=== PATIENT | male | born 1930 | race Caucasian/White ===

== ENCOUNTER 2018-05-01 23:06 | Inpatient (IN) | payer MEDICARE ==
[~2018-05-01] VITALS: Ht 167.6 cm; Wt 65.8 kg
--- OUTSIDE RECORDS SUMMARY | 2018-05-01 23:11 | XMS REPORT | CCD ---
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 Allergies Allergy Code Allergy Type Reaction Status IODINE 5933 Drug allergy HIVES Active Procedures Procedure Code Procedure Type Date Extracapsular cataract extraction, insertion of intraocular lens prosthesi 65244 CPT 09/02/2015 History of Immunizations Immunization Code Date pneumococcal polysaccharide PPV23 33 05/29/2011 Problems Problem Code Start Date Resolved Date Status ATRIAL FIBRILLATION WITH RVR 73719 05/28/2011 Active Results Unknown or Not Available. Active Medications Unknown or Not Available. Medications Administered During Visit Unknown or Not Available. Encounters Encounter Diagnosis Diagnosis Code Start Date Other specified cataract H268 09/02/2015 Social History Smoking Status Code Start Date End Date Never smoker [id number] Patient Decision Aids Patient Decision Aid MARISEL CATARACT DISMISSAL INSTRUCTIONS Discharge Instructions You were admitted to [facility] on 09/02/2015 with a principal diagnosis of Other specified cataract. You had the following procedures done: CATARACT SURG W/IOL 1 STAGE You were discharged from [facility] on 09/02/2015. Should you have any questions prior to discharge, please contact a member of your healthcare team. If you have left the hospital and have any questions, please contact your primary care physician. Chief Complaint and Reason For Visit Chief Complaint Date of Onset EYE CATARACT LEFT Function Status Unknown or Not Available. Plan of Care Unknown or Not Available. Referral/Transition of Care Unknown or Not Available.
--- OUTSIDE RECORDS SUMMARY | 2018-05-01 23:12 | XMS REPORT ---
Author Author AARON ROGERS 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 Medications Active Name Start Date Estimated Completion Date SIG Comments Celexa 20 mg oral tablet 03/30/2014 take 1 tablet (20 mg) by oral route once daily lisinopril 20 mg oral tablet 05/17/2015 TAKE 1 TABLET DAILY amlodipine 5 mg oral tablet 05/31/2015 TAKE 1 TABLET DAILY aspirin 81 mg oral tablet,delayed release (DR/EC) 08/05/2015 take 1 tablet (81 mg) by oral route once daily Pravachol 40 mg oral tablet 07/20/2016 TAKE 1 TABLET PO EVERY Wednesday AND WEDNESDAY FOR HYPERLIPIDEMIA Celexa 20 mg oral tablet 08/20/2016 TAKE 1 TABLET PO ONCE DAILY FOR DEPRESSION Pravachol 40 mg oral tablet 10/26/2016 TAKE 1 TABLET PO EVERY Wednesday AND WEDNESDAY FOR HYPERLIPIDEMIA fluticasone 50 mcg/actuation nasal spray,suspension 11/05/2017 inhale 1 spray (50 mcg) in each nostril by intranasal route 2 times per day Xanax 0.25 mg oral tablet 11/18/2017 Take One by Mouth Twice Daily lisinopril 20 mg oral tablet 2018 TAKE ONE (1) TABLET BY MOUTH DAILY (HOLD SBP<100) pravastatin 40 mg oral tablet 2018 TAKE 1 TABLET BY MOUTH EVERY WEDNESDAY, WEDNESDAY AND WEDNESDAY ONLY flecainide 50 mg oral tablet 2018 TAKE 1 TABLET BY MOUTH TWICE DAILY aspirin 81 mg oral tablet,chewable 2018 TAKE 1 TABLET BY MOUTH DAILY citalopram 20 mg oral tablet 2018 TAKE ONE (1) TABLET BY MOUTH DAILY amlodipine 5 mg oral tablet 2018 TAKE ONE (1) TABLET BY MOUTH DAILY ( HOLD SBP<100 PULSE<60) cephalexin 250 mg oral capsule 04/02/2018 04/12/2018 take 1 capsule (250 mg) by oral route every 6 hours for 10 days Name Start Date Expiration Date SIG Comments Tylenol 325 mg oral tablet 10/07/2012 take 1 - 2 tablets (325 - 650 mg) by oral route every 4 hours as needed for pain or fever Zithromax Z-Isac 250 mg oral tablet 04/25/2013 take 2 tablets (500 mg) by oral route once daily for 1 day then 1 tablet (250 mg) by oral route once daily for 4 days aspirin 81 mg oral tablet,chewable 11/28/2013 chew 1 tablet (81 mg) by oral route once daily clonidine HCl 0.1 mg oral tablet 11/28/2013 take 1 tablet by oral route every 6 hours as needed Colace 100 mg oral capsule 11/28/2013 take 1 capsule (100 mg) by oral route once daily tramadol 50 mg oral tablet 01/29/2014 take 1 tablet (50 mg) by oral route every 4 hours as needed citalopram 20 mg oral tablet 04/01/2015 TAKE ONE TABLET BY MOUTH ONCE DAILY Levaquin 500 mg oral tablet 10/22/2015 11/01/2015 take 1 tablet (500 mg) by oral route once daily for 10 days Zithromax Z-Isac 250 mg oral tablet 10/21/2015 10/26/2015 take 2 tablets (500 mg) by oral route once daily for 1 day then 1 tablet (250 mg) by oral route once daily for 4 days Medrol (Isac) 4 mg oral tablets,dose pack 12/09/2016 12/14/2016 take as directed for 5 days alprazolam 0.5 mg oral tablet 12/15/2016 12/10/2017 TAKE ONE-HALF TABLET BY MOUTH TWICE DAILY Discontinued Name Start Date Discontinued Date SIG Comments flecainide 100 mg oral tablet 10/14/2009 deleted Tambocor 100 mg oral tablet 11/20/2010 11/28/2013 .5BID - TAKE ONE-HALF TABLET BY MOUTH TWICE DAILY flecainide 100 mg oral tablet 03/20/2011 11/28/2013 TAKE ONE-HALF TABLET BY MOUTH TWICE DAILY lisinopril-hydrochlorothiazide 20-12.5 mg oral tablet 09/15/2011 11/28/2013 TAKE ONE TABLET BY MOUTH EVERY DAY alprazolam 0.5 mg oral tablet 02/12/2014 03/23/2014 take 0.5 unspecified by oral route 2 times a day flecainide 100 mg oral tablet 05/09/2014 08/05/2015 half tablet BID pravastatin 40 mg oral tablet 05/03/2015 12/22/2016 TAKE 1 TABLET ON MON,WED, WED citalopram 20 mg oral tablet 05/31/2015 12/22/2016 TAKE 1 TABLET DAILY ZESTRIL 20MG TABLET 08/20/2016 05/07/2017 TAKE 1 TABLET BY MOUTH ONCE DAILY FOR HTN (HOLD IF SBP <100) Norvasc 5 mg oral tablet 09/03/2016 05/07/2017 TAKE 1 TABLET BY MOUTH ONCE DAILY FOR HTN (HOLD IF SBP <100 PULSE <60) Colcrys 0.6 mg oral tablet 09/09/2016 12/22/2016 take 2 tablets (1.2 mg) by oral route initially, then take 1 tab (0.6 mg ) in 1 hr Bactrim DS 800-160 mg oral tablet 03/23/2018 04/02/2018 take 1 tablet by oral route every 12 hours for 10 days stomach discomfort Problem List Description Status Onset Arthritis unspecified Active Hyperlipidemia Active Hypertension Active Kidney Disease Active Chronic kidney disease, Stage II (mild) Active 05/30/2013 Vital Signs Date Time BP-Sys(mm[Hg] BP-Donna(mm[Hg]) HR(bpm) RR(rpm) Temp WT HT HC BMI BSA BMI Percentile O2 Sat(%) 04/01/2018 1:38:00 PM 124 mmHg 66 mmHg 78 bpm 18 rpm 98 F 150 lbs 98 % 03/28/2018 10:21:00 AM 128 mmHg 70 mmHg 78 bpm 18 rpm 98.2 F 150 lbs 66 in 24.2104 kg/m 1.78 m 98 % 03/22/2018 10:14:00 AM 138 mmHg 70 mmHg 74 bpm 18 rpm 98.1 F 152 lbs 64 in 26.09 kg/m2 1.76 m2 97 % 03/15/2018 3:23:00 PM 130 mmHg 70 mmHg 68 bpm 18 rpm 98.2 F 151 lbs 65 in 25.1275 kg/m 1.7723 m 96 % 11/04/2017 3:32:00 PM 128 mmHg 62 mmHg 74 bpm 18 rpm 98.2 F 154 lbs 96 % 10/26/2016 11:31:00 AM 120 mmHg 68 mmHg 66 bpm 16 rpm 97.6 F 145 lbs 66 in 23.4034 kg/m 1.7501 m 95 % 04/10/2016 10:43:00 AM 118 mmHg 62 mmHg 70 bpm 16 rpm 97.1 F 144 lbs 66 in 23.24 kg/m2 1.74 m2 96 % 10/21/2015 3:51:00 PM 135 mmHg 70 mmHg 85 bpm 18 rpm 99.6 F 145 lbs 66 in 23.4034 kg/m 1.7501 m 95 % 06/13/2015 11:21:00 AM 148 mmHg 70 mmHg 70 bpm 16 rpm 99.5 F 143 lbs 67 in 22.40 kg/m2 1.75 m2 98 % 12/04/2014 2:30:00 PM 140 mmHg 80 mmHg 82 bpm 20 rpm 98.2 F 141 lbs 67 in 22.0835 kg/m 1.7388 m 97 % 02/05/2014 11:18:00 AM 144 mmHg 72 mmHg 90 bpm 20 rpm 97.8 F 142 lbs 67 in 22.24 kg/m2 1.74 m2 97 % 12/04/2013 11:17:00 AM 130 mmHg 70 mmHg 80 bpm 20 rpm 96.9 F 147.375 lbs 67 in 23.082 kg/m 1.7777 m 97 % 05/29/2013 1:35:00 PM 130 mmHg 60 mmHg 84 bpm 16 rpm 97.3 F 145 lbs 67 in 22.71 kg/m2 1.76 m2 98 % 04/25/2013 10:00:00 AM 136 mmHg 72 mmHg 84 bpm 20 rpm 98 F 148 lbs 67 in 23.1798 kg/m 1.7814 m 97 % 04/18/2012 8:57:00 AM 140 mmHg 64 mmHg 60 bpm 16 rpm 138 lbs 67 in 21.61 kg/m2 1.72 m2 100 % 08/24/2011 10:09:00 AM 136 mmHg 82 mmHg 80 bpm 140 lbs 67 in 21.9269 kg/m 1.7326 m 10/20/2010 9:55:00 AM 136 mmHg 80 mmHg 102 bpm 142 lbs 100 % 12/30/2009 1:31:00 PM 136 mmHg 80 mmHg 84 bpm 139 lbs 99 % 12/24/2009 8:42:00 AM 112 mmHg 74 mmHg 137 lbs Social History Name Description Comments Tobacco Never smoker denies alcohol use History of Procedures Date Ordered Description Order Status 06/13/2015 12:00 AM REMOVE IMPACTED EAR WAX UNI Reviewed 09/24/2009 12:00 AM ROUTINE VENIPUNCTURE Reviewed 09/24/2009 12:00 AM LIPID PANEL Reviewed 09/24/2009 12:00 AM HEPATIC FUNCTION PANEL Reviewed 10/21/2015 12:00 AM Decadron, Per 1 Mg [facility]# [address]-25 Reviewed 10/21/2015 12:00 AM Rocephin 1 gram [facility]#8803-1389-33 Reviewed 12/25/2015 12:00 AM Removal impacted cerumen using irrigation/lavage, unilateral Reviewed 03/31/2016 12:00 AM DRAINAGE OF SKIN ABSCESS Reviewed 05/19/2016 12:00 AM Removal impacted cerumen using irrigation/lavage, unilateral Reviewed 11/19/2011 12:00 AM ROUTINE VENIPUNCTURE Reviewed 11/19/2011 12:00 AM COMPREHEN METABOLIC PANEL Reviewed 11/19/2011 12:00 AM LIPID PANEL Reviewed 12/18/2011 12:00 AM ROUTINE VENIPUNCTURE Reviewed 12/18/2011 12:00 AM COMPREHEN METABOLIC PANEL Reviewed 12/02/2016 12:00 AM COMPLETE CBC W/AUTO DIFF WBC Reviewed 12/02/2016 12:00 AM COMPREHEN METABOLIC PANEL Reviewed 12/02/2016 12:00 AM LIPID PANEL Reviewed 12/02/2016 12:00 AM Prostate Cancer Screening Reviewed 12/02/2016 12:00 AM ASSAY OF BLOOD/URIC ACID Reviewed 04/18/2012 12:00 AM ROUTINE VENIPUNCTURE Reviewed 04/18/2012 12:00 AM COMPREHEN METABOLIC PANEL Reviewed 04/18/2012 12:00 AM LIPID PANEL Reviewed 04/18/2012 12:00 AM COMPLETE CBC W/AUTO DIFF WBC Reviewed 04/18/2012 12:00 AM Prostate Cancer Screening Reviewed 05/07/2017 12:00 AM REMOVE IMPACTED EAR WAX UNI Reviewed 06/24/2012 12:00 AM Flu Injection 3 Years And Above [facility]# [address]-73 RHC Reviewed 09/20/2012 12:00 AM REMOVE IMPACTED EAR WAX UNI Reviewed 03/15/2018 12:00 AM COMPLETE CBC W/AUTO DIFF WBC Returned 03/15/2018 12:00 AM COMPREHEN METABOLIC PANEL Returned 03/15/2018 12:00 AM LIPID PANEL Returned 03/15/2018 12:00 AM Prostate Cancer Screening Returned 03/15/2018 12:00 AM COMPREHEN METABOLIC PANEL Returned 03/22/2018 12:00 AM COMPREHEN METABOLIC PANEL Returned 04/25/2013 12:00 AM THER/PROPH/DIAG INJ SC/IM Reviewed 04/25/2013 12:00 AM Decadron, Per 1 Mg [facility]# [address]-49 Reviewed 04/25/2013 12:00 AM Depo-Medrol, Per 80 Mg [facility]#9558-4254-92 Reviewed 12/24/2009 12:00 AM ROUTINE VENIPUNCTURE Reviewed 12/24/2009 12:00 AM COMPLETE CBC W/AUTO DIFF WBC Reviewed 12/24/2009 12:00 AM COMPREHEN METABOLIC PANEL Reviewed 12/24/2009 12:00 AM LIPID PANEL Reviewed 11/27/2013 12:00 AM COMPLETE CBC W/AUTO DIFF WBC Reviewed 11/27/2013 12:00 AM COMPREHEN METABOLIC PANEL Reviewed 11/27/2013 12:00 AM LIPID PANEL Reviewed 05/28/2014 12:00 AM COMPLETE CBC W/AUTO DIFF WBC Reviewed 05/28/2014 12:00 AM COMPREHEN METABOLIC PANEL Reviewed 12/04/2013 12:00 AM Prostate Cancer Screening Reviewed 05/28/2014 12:00 AM LIPID PANEL Reviewed 02/05/2014 12:00 AM COMPLETE CBC W/AUTO DIFF WBC Reviewed 02/05/2014 12:00 AM COMPREHEN METABOLIC PANEL Reviewed 02/05/2014 12:00 AM ROUTINE VENIPUNCTURE Reviewed 10/09/2010 12:00 AM ROUTINE VENIPUNCTURE Reviewed 10/09/2010 12:00 AM COMPREHEN METABOLIC PANEL Reviewed 10/09/2010 12:00 AM LIPID PANEL Reviewed 06/07/2014 12:00 AM COMPLETE CBC W/AUTO DIFF WBC Reviewed 06/07/2014 12:00 AM COMPREHEN METABOLIC PANEL Reviewed 06/07/2014 12:00 AM LIPID PANEL Reviewed 06/07/2014 12:00 AM ROUTINE VENIPUNCTURE Reviewed 01/19/2011 12:00 AM ROUTINE VENIPUNCTURE Reviewed 12/07/2014 12:00 AM COMPLETE CBC W/AUTO DIFF WBC Reviewed 12/07/2014 12:00 AM COMPREHEN METABOLIC PANEL Reviewed 01/19/2011 12:00 AM COMPLETE CBC W/AUTO DIFF WBC Reviewed 12/07/2014 12:00 AM LIPID PANEL Reviewed 12/07/2014 12:00 AM ROUTINE VENIPUNCTURE Reviewed 01/19/2011 12:00 AM COMPREHEN METABOLIC PANEL Reviewed 01/19/2011 12:00 AM LIPID PANEL Reviewed 01/19/2011 12:00 AM ASSAY OF PSA TOTAL Reviewed 12/25/2014 12:00 AM DRAINAGE OF SKIN ABSCESS Reviewed 02/06/2011 12:00 AM OCCULT BLD FECES 1-3 TESTS Reviewed Results Summary Date and Description Results 12/24/2009 4:30 PM TRIGLYCERIDES 116.0 mg/dLCHOLESTEROL 205.0 mg/dLHDL 51.0 mg/ dLTOT CHOL/HDL 4.0 LDL 123.0 mg/dLGLUCOSE 94.0 mg/dLSODIUM 137.0 mmol/ LPOTASSIUM 5.10 mmol/LCHLORIDE 103.0 mmol/LCO2 25.0 mmol/LBUN 34.0 mg/ dLCREATININE 1.70 mg/dLSGOT/AST 13.0 IU/LSGPT/ALT < 6 IU/LALK PHOS 89.0 IU/ LTOTAL PROTEIN 7.20 g/dLALBUMIN 4.60 g/dLTOTAL BILI 0.40 mg/dLCALCIUM 9.50 mg/ dLAGE 79 GFR NonAA 39 GFR AA 47 eGFR 39 eGFR AA* 47 WBC 7.1 RBC 3.98 HGB 13.0 g/ dLHCT 37.10 %MCV 93.0 fLMCH 32.70 pgMCHC 35.0 g/dLRDW SD 42 RDW CV 12.20 %MPV 9.40 fLPLT 228 NRBC# 0.00 NRBC% 0.0 %NEUT 56.70 %%LYMP 28.40 %%MONO 9.0 %%EOS 5.50 %%BASO 0.40 %#NEUT 4.05 #LYMP 2.03 #MONO 0.64 #EOS 0.39 #BASO 0.03 MANUAL DIFF NOT IND 01/19/2011 4:04 PM TRIGLYCERIDES 111.0 mg/dLCHOLESTEROL 167.0 mg/dLHDL 43.0 mg/ dLTOT CHOL/HDL 3.9 LDL 105.0 mg/dLGLUCOSE 102.0 mg/dLSODIUM 133.0 mmol/ LPOTASSIUM 4.70 mmol/LCHLORIDE 102.0 mmol/LCO2 20.0 mmol/LBUN 33.0 mg/ dLCREATININE 1.80 mg/dLSGOT/AST 12.0 IU/LSGPT/ALT < 6 IU/LALK PHOS 81.0 IU/ LTOTAL PROTEIN 7.20 g/dLALBUMIN 4.30 g/dLTOTAL BILI 0.30 mg/dLCALCIUM 9.50 mg/ dLAGE 80 GFR NonAA 37 GFR AA 45 eGFR 37 eGFR AA* 45 WBC 7.3 RBC 3.75 HGB 11.90 g /dLHCT 35.0 %MCV 93.0 fLMCH 31.70 pgMCHC 34.0 g/dLRDW SD 43 RDW CV 12.60 %MPV 9.50 fLPLT 259 NRBC# 0.00 NRBC% 0.0 %NEUT 59.50 %%LYMP 27.30 %%MONO 8.70 %%EOS 3.80 %%BASO 0.70 %#NEUT 4.36 #LYMP 2.00 #MONO 0.64 #EOS 0.28 #BASO 0.05 MANUAL DIFF NOT IND 01/19/2011 4:26 PM PSA TOTAL 1.840 ng/mL 12/18/2011 5:36 PM GLUCOSE 102.0 mg/dLSODIUM 131.0 mmol/LPOTASSIUM 5.40 mmol/ LCHLORIDE 99.0 mmol/LCO2 21.0 mmol/LBUN 34.0 mg/dLCREATININE 2.30 mg/dLSGOT/AST 17.0 IU/LSGPT/ALT 12.0 IU/LALK PHOS 96.0 IU/LTOTAL PROTEIN 7.30 g/dLALBUMIN 4.40 g/dLTOTAL BILI 0.40 mg/dLCALCIUM 9.30 mg/dLAGE 81 GFR NonAA 27 GFR AA 33 eGFR 27 eGFR AA* 33 04/18/2012 4:07 PM WBC 7.2 RBC 3.89 HGB 12.70 g/dLHCT 37.20 %MCV 96.0 fLMCH 32.60 pgMCHC 34.10 g/dLRDW SD 48 RDW CV 13.90 %MPV 9.60 fLPLT 266 NRBC# 0.00 NRBC% 0.0 GLUCOSE 94.0 mg/dLSODIUM 134.0 mmol/LPOTASSIUM 4.50 mmol/LCHLORIDE 102.0 mmol/LCO2 22.0 mmol/LBUN 32.0 mg/dLCREATININE 2.0 mg/dLSGOT/AST 16.0 IU/ LSGPT/ALT 10.0 IU/LALK PHOS 92.0 IU/LTOTAL PROTEIN 7.40 g/dLALBUMIN 4.40 g/ dLTOTAL BILI 0.60 mg/dLCALCIUM 9.50 mg/dLAGE 82 GFR NonAA 32 GFR AA 39 eGFR 32 eGFR AA* 39 PSA TOTAL 2.120 ng/mLTRIGLYCERIDES 114.0 mg/dLCHOLESTEROL 181.0 mg/ dLHDL 58.0 mg/dLTOT CHOL/HDL 3.1 LDL (CALC) 100.0 mg/dL 02/05/2014 3:20 PM WBC 10.8 RBC 3.67 HGB 12.10 g/dLHCT 35.40 %MCV 97.0 fLMCH 33.0 pgMCHC 34.20 g/dLRDW SD 47 RDW CV 13.30 %MPV 9.10 fLPLT 369 NRBC# 0.00 NRBC % 0.0 %NEUT 76.80 %%LYMP 11.90 %%MONO 10.30 %%EOS 0.70 %%BASO 0.30 %#NEUT 8.28 # LYMP 1.28 #MONO 1.11 #EOS 0.08 #BASO 0.03 MANUAL DIFF NOT IND GLUCOSE 80.0 mg/ dLSODIUM 136.0 mmol/LPOTASSIUM 4.30 mmol/LCHLORIDE 101.0 mmol/LCO2 21.0 mmol/ LBUN 26.0 mg/dLCREATININE 1.60 mg/dLSGOT/AST 20.0 IU/LSGPT/ALT 11.0 IU/LALK PHOS 91.0 IU/LTOTAL PROTEIN 7.30 g/dLALBUMIN 4.10 g/dLTOTAL BILI 0.40 mg/ dLCALCIUM 8.90 mg/dLAGE 83 GFR NonAA 42 GFR AA 51 eGFR 42 eGFR AA* 51 06/07/2014 4:01 PM WBC 8.5 RBC 3.60 HGB 11.90 g/dLHCT 35.60 %MCV 99.0 fLMCH 33.10 pgMCHC 33.40 g/dLRDW SD 48 RDW CV 13.40 %MPV 9.30 fLPLT 285 NRBC# 0.00 NRBC% 0.0 %NEUT 63.60 %%LYMP 22.50 %%MONO 8.70 %%EOS 4.60 %%BASO 0.60 %#NEUT 5.43 #LYMP 1.92 #MONO 0.74 #EOS 0.39 #BASO 0.05 MANUAL DIFF NOT IND TRIGLYCERIDES 62.0 mg/dLCHOLESTEROL 189.0 mg/dLHDL 77.0 mg/dLTOT CHOL/HDL 2.5 LDL (CALC) 100.0 mg/dLGLUCOSE 99.0 mg/dLSODIUM 134.0 mmol/LPOTASSIUM 5.20 mmol/ LCHLORIDE 102.0 mmol/LCO2 20.0 mmol/LBUN 41.0 mg/dLCREATININE 1.70 mg/dLSGOT/ AST 18.0 IU/LSGPT/ALT 10.0 IU/LALK PHOS 113.0 IU/LTOTAL PROTEIN 7.60 g/ dLALBUMIN 4.30 g/dLTOTAL BILI 0.50 mg/dLCALCIUM 9.50 mg/dLAGE 84 GFR NonAA 39 GFR AA 47 eGFR 39 eGFR AA* 47 12/07/2014 4:23 PM GLUCOSE 96.0 mg/dLSODIUM 134.0 mmol/LPOTASSIUM 5.0 mmol/ LCHLORIDE 102.0 mmol/LCO2 22.0 mmol/LBUN 32.0 mg/dLCREATININE 1.80 mg/dLSGOT/ AST 18.0 IU/LSGPT/ALT 12.0 IU/LALK PHOS 95.0 IU/LTOTAL PROTEIN 7.70 g/dLALBUMIN 3.70 g/dLTOTAL BILI 0.60 mg/dLCALCIUM 9.50 mg/dLAGE 84 GFR NonAA 36 GFR AA 44 eGFR 36 eGFR AA* 44 WBC 8.4 RBC 3.67 HGB 11.90 g/dLHCT 35.30 %MCV 96.0 fLMCH 32.40 pgMCHC 33.70 g/dLRDW SD 48 RDW CV 13.60 %MPV 9.80 fLPLT 257 NRBC# 0.00 NRBC% 0.0 %NEUT 64.30 %%LYMP 24.60 %%MONO 6.90 %%EOS 4.0 %%BASO 0.20 %#NEUT 5.42 #LYMP 2.07 #MONO 0.58 #EOS 0.34 #BASO 0.02 MANUAL DIFF NOT IND TRIGLYCERIDES 71.0 mg/dLCHOLESTEROL 212.0 mg/dLHDL 74.0 mg/dLTOT CHOL/HDL 2.9 LDL (CALC) 124.0 mg/dL History Of Immunizations Not available. History of Past Illness Name Date of Onset Comments Hyperlipidemia Sep 24 2009 8:30AM Arthritis unspecified Hypertension Hyperlipidemia Hypertension Dec 24 2009 8:45AM Hyperlipidemia Dec 24 2009 8:45AM Essential Hypertension Dec 30 2009 1:33PM Blood Chemistry Abnormal Dec 30 2009 1:33PM Kidney Disease elevated renal enzymes Chronic kidney disease, Stage II (mild) 05/30/2013 Hyperlipidemia Oct 09 2010 9:11AM Essential Hypertension Oct 20 2010 9:55AM Hyperlipidemia, unspecified Oct 20 2010 9:55AM Anxiety Disorder Oct 20 2010 9:55AM General Medical Exam, Adult Oct 20 2010 9:55AM Hypertension Jan 19 2011 8:05AM Hyperlipidemia Jan 19 2011 8:05AM Anemia Feb 06 2011 9:15AM Essential Hypertension Aug 24 2011 10:10AM Follow-Up Examination Aug 24 2011 10:10AM Epistaxis Aug 24 2011 10:10AM Coronary Artery Disease Nov 19 2011 9:04AM Coronary Artery Disease Dec 18 2011 9:07AM Renal Failure Dec 18 2011 9:07AM Essential Hypertension Apr 18 2012 8:58AM Hyperlipidemia, unspecified Apr 18 2012 8:58AM Anxiety Disorder Apr 18 2012 8:58AM Depressive Disorder Apr 18 2012 8:58AM General Medical Exam, Adult Apr 18 2012 8:58AM Flu Jun 24 2012 8:19AM Cerumen Impaction Sep 21 2012 12:20PM Bronchitis, Acute Apr 25 2013 10:00AM Arthritis unspecified May 29 2013 1:36PM Hyperlipidemia May 29 2013 1:36PM Hypertension May 29 2013 1:36PM Chronic kidney disease, Stage II (mild) May 29 2013 1:36PM Chronic kidney disease, Stage II (mild) Nov 27 2013 1:20PM Hyperlipidemia Nov 27 2013 1:20PM Hypertension Nov 27 2013 1:20PM Chronic kidney disease, Stage II (mild) Dec 04 2013 1:05PM Arthritis unspecified Dec 04 2013 1:05PM Hyperlipidemia Dec 04 2013 1:05PM Hypertension Dec 04 2013 1:05PM Screening For Prostate Cancer Dec 04 2013 1:07PM Chronic kidney disease, Stage II (mild) Dec 04 2013 11:17AM Arthritis unspecified Dec 04 2013 11:17AM Hyperlipidemia Dec 04 2013 11:17AM Hypertension Dec 04 2013 11:17AM Chronic kidney disease, Stage II (mild) Feb 05 2014 1:11PM Hypertension Feb 05 2014 1:11PM Fracture, rib, left, with routine healing, subsequent encounter Feb 05 2014 11 :18AM Chronic kidney disease, Stage II (mild) Feb 05 2014 11:18AM Chronic kidney disease, Stage II (mild) Jun 07 2014 8:30AM Hyperlipidemia Jun 07 2014 8:30AM Hypertension Jun 07 2014 8:30AM 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 2014 8:30AM Cerumen debris on tympanic membrane Dec 04 2014 2:31PM Chronic kidney disease, Stage II (mild) Dec 07 2014 10:49AM Hyperlipidemia Dec 07 2014 10:49AM Hypertension Dec 07 2014 10:49AM 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 Dec 07 2014 10:49AM Sebaceous Cyst, upper back Dec 25 2014 4:18PM Moderate Acute Cerumen Impaction Worsening Jun 13 2015 11:21AM 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 Stable Jun 13 2015 11:21AM Cerumen Impaction Jun 17 2015 7:09AM Moderate Acute Cough Oct 21 2015 3:51PM Upper respiratory tract infection, unspecified type Oct 21 2015 3:51PM Moderate Acute Chest congestion Oct 21 2015 3:51PM Bilateral impacted cerumen Dec 25 2015 11:08AM Acute Cyst, epidermal & sebaceous Mar 31 2016 11:52AM Bilateral impacted cerumen Apr 10 2016 10:44AM Mild Chronic Cyst, epidermal & sebaceous Stable Apr 10 2016 10:44AM Bilateral impacted cerumen May 18 2016 2:41PM Eustachian tube dysfunction, bilateral Oct 26 2016 11:32AM Purulent postnasal drainage Oct 26 2016 11:32AM Nasal congestion with rhinorrhea Oct 26 2016 11:32AM Chronic kidney disease, Stage II (mild) Dec 02 2016 12:08PM Hyperlipidemia Dec 02 2016 12:08PM Hypertension Dec 02 2016 12:08PM USP use of drug Dec 02 2016 12:08PM Gout Dec 02 2016 12:08PM Prostate cancer screening Dec 02 2016 12:08PM Bilateral impacted cerumen May 06 2017 3:22PM Dysfunction of both eustachian tubes Nov 04 2017 3:32PM Purulent postnasal drainage Nov 04 2017 3:32PM Acute seasonal allergic rhinitis, unspecified trigger Nov 04 2017 3:32PM Chronic kidney disease, Stage II (mild) Mar 15 2018 10:08AM Hyperlipidemia Mar 15 2018 10:08AM Hypertension Mar 15 2018 10:08AM USP use of drug Mar 15 2018 10:08AM Gout Mar 15 2018 10:08AM Prostate cancer screening Mar 15 2018 10:08AM Kidney failure Mar 15 2018 3:21PM Elbow abrasion, right, initial encounter Mar 15 2018 3:24PM Back strain, initial encounter Mar 15 2018 3:24PM Fall, initial encounter Mar 15 2018 3:24PM Kidney failure Mar 22 2018 11:08AM Cyst, epidermal & sebaceous Mar 22 2018 10:15AM Cellulitis of face Apr 01 2018 1:39PM Sebaceous Cyst Apr 01 2018 1:39PM Cellulitis of face Mar 28 2018 10:22AM Sebaceous Cyst Mar 28 2018 10:22AM Payers Insurance Name Company Name Plan Name Plan Number Policy Number Policy Group Number Start Date Medicare RHC Medicare RHC [id number] N/A [id number]/A Medicare Part A Medicare Part A [id number] N/A Medicare Part A Medicare - Lab/Xray [id number] N/A Nation[employer] Insurance [employer] Insurance [id number] N/A Medicare Part B Medicare Of [place] [id number] N/A History of Encounters Visit Date Visit Type Provider 04/01/2018 Office visit AARON MAJOR 03/28/2018 Office visit AARON MAJOR 03/22/2018 Office visit AARON MAJOR 03/15/2018 Office visit AARON MAJOR 11/04/2017 Office visit AARON MAJOR 05/06/2017 Office visit AARON MAJOR 10/26/2016 Office visit AARON MAJOR 04/10/2016 Office visit AARON MAJOR 03/31/2016 Office visit AARON MAJOR 12/25/2015 Office visit AARON MAJOR 10/21/2015 Office visit AARON MAJOR 06/13/2015 Office visit AARON MAJOR 12/25/2014 Office visit AARON MAJOR 12/07/2014 Office visit AARON MAJOR 12/04/2014 Office visit AARON MAJOR 06/07/2014 Office visit AARON ROGERS PA 02/05/2014 Office visit AARON ROGERS PA 12/04/2013 Office visit AARON ROGERS PA 05/29/2013 Office visit AARON ROGERS PA 04/25/2013 Office visit AARON ROGERS PA 09/20/2012 Office visit AARON ROGERS PA 06/24/2012 Office visit AARON ROGERS PA 04/18/2012 Office visit AARON ROGERS PA 12/18/2011 Office visit AARON ROGERS PA 11/19/2011 Office visit AARON ROGERS PA 08/24/2011 Office visit AARON ROGERS PA 05/29/2011 Hospital Ramy Ghosh MD 05/28/2011 [facility] Ramy Ghosh MD 02/06/2011 Office visit Aaron Rogers PA-C 01/19/2011 Office visit Aaron Rogers PA-C 10/20/2010 Office visit Aaron Rogers PA-C 10/09/2010 Office visit Aaron Rogers PA-C 12/30/2009 Office visit Aaron Rogers PA-C 12/24/2009 Laboratory Aaron Rogers PA-C 09/24/2009 Laboratory Aaron Rogers PA-C 04/22/2009 Office visit AARON MAJOR
--- OUTSIDE RECORDS SUMMARY | 2018-05-01 23:13 | XMS REPORT ---
Author Author AARON ROGERS [facility] Address [address] [place] [id number] Care Team Providers Care Animal Husbandry Worker Name Role Phone AARON ROGERS PCP AARON [...] BY MOUTH DAILY ( HOLD SBP<100 PULSE<60) Bactrim DS 800-160 mg oral tablet 03/23/2018 04/02/2018 take 1 tablet by oral route every 12 hours for 10 days Name Start Date [...] tab (0.6 mg ) in 1 hr Problem List Description Status Onset Arthritis unspecified [...] 10/21/2015 12:00 AM Decadron, Per 1 Mg [facility]# [address]-44 Reviewed 10/21/2015 12:00 AM Rocephin 1 gram [facility]#7359-1055-55 Reviewed 12/25/2015 12:00 AM Removal impacted cerumen [...] AM Flu Injection 3 Years And Above [facility]# [address]-48 RHC Reviewed 09/20/2012 12:00 AM REMOVE IMPACTED [...] 04/25/2013 12:00 AM Decadron, Per 1 Mg [facility]# [address]-80 Reviewed 04/25/2013 12:00 AM Depo-Medrol, Per 80 Mg [facility]#2822-2262-14 Reviewed 12/24/2009 12:00 AM ROUTINE VENIPUNCTURE Reviewed [...] 2014 8:30AM Hypertension Jun 07 2014 8:30AM skilled nursing use of drug Jun 07 2014 8:30AM Cerumen debris on tympanic membrane Dec 04 2014 2:31PM Chronic kidney disease, Stage II (mild) Dec 07 2014 10:49AM Hyperlipidemia Dec 07 2014 10:49AM Hypertension Dec 07 2014 10:49AM skilled nursing use of drug Dec 07 2014 10:49AM [...] 2016 12:08PM Hypertension Dec 02 2016 12:08PM 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 Dec 02 2016 12:08PM [...] 2018 10:08AM Hypertension Mar 15 2018 10:08AM 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 Mar 15 2018 10:08AM [...] 1:39PM Sebaceous Cyst Apr 01 2018 1:39PM Payers Insurance Name Company Name Plan Name Plan Number Policy Number Policy Group Number Start Date Medicare RHC Medicare RHC [id number] N/[id number] N/A Medicare Part A Medicare Part A [id number] N/A Medicare Part A Medicare - Lab/Xray [id number] N/A Nationwide Insurance Nationwide Insurance [id number] N/A Medicare Part B Medicare Of [place] [id number] N/A History of Encounters Visit Date Visit [...] visit AARON MAJOR 06/07/2014 Office visit AARON MAJOR 02/05/2014 Office visit AARON MAJOR 12/04/2013 Office visit AARON MAJOR 05/29/2013 Office visit AARON MAJOR 04/25/2013 Office visit AARON ROGERS PA 09/20/2012 Office visit AARON ROGERS PA 06/24/2012 Office visit AARON ROGERS PA 04/18/2012 Office visit AARON ROGERS PA 12/18/2011 Office visit AARON ROGERS PA 11/19/2011 Office visit AARON ROGERS PA 08/24/2011 Office visit AARON MAJOR 05/29/2011 [facility] Ramy Ghosh MD 05/28/2011 [facility] Ramy Ghosh MD 02/06/2011 Office visit Aaron Rogers PA-C 01/19/2011 Office visit Aaron Rogers PA-C 10/20/2010 Office visit Aaron Rogers PA-C 10/09/2010 Office visit Aaron Rogers PA-C 12/30/2009 Office visit Aaron Rogers PA-C 12/24/2009 Laboratory Aaron Rogers PA-C 09/24/2009 Laboratory Aaron Rogers PA-C 04/22/2009 Office visit AARON MAJOR
--- OUTSIDE RECORDS SUMMARY | 2018-05-01 23:14 | XMS REPORT ---
Author Author AARON ROGERS [facility] Address [address] [place] [id number] Care Team Providers Care Cyanide Pot Hardener Name Role Phone AARON ROGERS PCP AARON [...] HC BMI BSA BMI Percentile O2 Sat(%) 03/22/2018 10:14:00 AM 138 mmHg 70 mmHg 74 bpm 18 rpm 98.1 F 152 lbs 64 in 26.0905 kg/m 1.7645 m 97 % 03/15/2018 3:23:00 PM 130 mmHg 70 mmHg 68 bpm 18 rpm 98.2 F 151 lbs 65 in 25.13 kg/m2 1.77 m2 96 % 11/04/2017 3:32:00 PM 128 mmHg [...] mmHg 80 bpm 140 lbs 67 in 21.93 kg/m2 1.73 m2 10/20/2010 9:55:00 AM 136 mmHg 80 mmHg [...] 12:00 AM Decadron, Per 1 Mg [facility]# [address]-03 Reviewed 10/21/2015 12:00 AM Rocephin 1 gram [facility]#4453-5184-07 Reviewed 12/25/2015 12:00 AM Removal impacted cerumen [...] Flu Injection 3 Years And Above [facility]# [address]-10 RHC Reviewed 09/20/2012 12:00 AM REMOVE IMPACTED [...] 12:00 AM Decadron, Per 1 Mg [facility]# [address]-10 Reviewed 04/25/2013 12:00 AM Depo-Medrol, Per 80 Mg [facility]#1645-0805-68 Reviewed 12/24/2009 12:00 AM ROUTINE VENIPUNCTURE Reviewed [...] 2014 8:30AM Hypertension Jun 07 2014 8:30AM correction use of drug Jun 07 2014 8:30AM Cerumen debris on tympanic membrane Dec 04 2014 2:31PM Chronic kidney disease, Stage II (mild) Dec 07 2014 10:49AM Hyperlipidemia Dec 07 2014 10:49AM Hypertension Dec 07 2014 10:49AM correction use of drug Dec 07 2014 10:49AM [...] 2016 12:08PM Hypertension Dec 02 2016 12:08PM 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 Dec 02 2016 12:08PM [...] 2018 10:08AM Hypertension Mar 15 2018 10:08AM correction use of drug Mar 15 2018 10:08AM Gout Mar 15 2018 10:08AM Prostate cancer screening Mar 15 2018 10:08AM Kidney failure Mar 15 2018 3:21PM Elbow abrasion, right, initial encounter Mar 15 2018 3:24PM Back strain, initial encounter Mar 15 2018 3:24PM Fall, initial encounter Mar 15 2018 3:24PM Kidney failure Mar 22 2018 11:08AM Cyst, epidermal & sebaceous Mar 22 2018 10:15AM Payers Insurance Name Company Name Plan Name Plan Number Policy Number Policy Group Number Start Date Medicare RHC Medicare RHC [id number] N/A [facility] [id number] N/A Medicare Part A Medicare Part A [id number] N/A Medicare Part A Medicare - Lab/Xray [id number] N/A Nationwide Insurance Nationwide Insurance [id number] N/A Medicare Part B Medicare Of [place] [id number] N/A History of Encounters Visit Date Visit Type Provider 03/22/2018 Office visit AARON MAJOR 03/15/2018 Office [...] visit AARON MAJOR 04/25/2013 Office visit AARON MAJOR 09/20/2012 Office visit AARON MAJOR 06/24/2012 Office visit AARON MAJOR 04/18/2012 Office visit AARON MAJOR 12/18/2011 Office visit AARON MAJOR 11/19/2011 Office visit AARON MAJOR 08/24/2011 Office visit AARON MAJOR 05/29/2011 [facility] Ramy Ghosh MD 05/28/2011 [facility] Ramy Ghosh MD 02/06/2011 Office visit Aaron Rogers PA-C 01/19/2011 Office visit Aaron Rogers PA-C 10/20/2010 Office visit Aaron MAJOR-C 10/09/2010 Office visit Aaron MAJOR-C 12/30/2009 Office visit Aaron MAJOR-C 12/24/2009 Laboratory Aaron MAJOR-C 09/24/2009 Laboratory Aaron Rogers PA-C 04/22/2009 Office visit AARON MAJOR
--- OUTSIDE RECORDS SUMMARY | 2018-05-01 23:15 | XMS REPORT ---
Author Author AARON ROGERS [facility] Address [address] [place], [place] [id number] Care Team Providers Care Home Service Advisor Name Role Phone AARON ROGERS PCP AARON ROGERS PreferredProvider Allergies and Adverse Reactions Name Reaction Notes iodine PENICILLINS Plan of Treatment Planned Activity Comments Planned Date Planned Time Plan/Goal [facility] 03/22/2018 12:00 AM Medications Active Name Start Date Estimated Completion [...] BY MOUTH DAILY ( HOLD SBP<100 PULSE<60) Name Start Date Expiration Date SIG Comments [...] 10/21/2015 12:00 AM Decadron, Per 1 Mg [facility]# [address]-08 Reviewed 10/21/2015 12:00 AM Rocephin 1 gram [facility]#4898-7011-05 Reviewed 12/25/2015 12:00 AM Removal impacted cerumen [...] AM Flu Injection 3 Years And Above [facility]# [address]-64 RHC Reviewed 09/20/2012 12:00 AM REMOVE IMPACTED EAR WAX UNI Reviewed 03/15/2018 12:00 AM COMPLETE CBC W/AUTO DIFF WBC Returned 03/15/2018 12:00 AM COMPREHEN METABOLIC PANEL Returned 03/15/2018 12:00 AM LIPID PANEL Returned 03/15/2018 12:00 AM Prostate Cancer Screening Returned 03/15/2018 12:00 AM COMPREHEN METABOLIC PANEL Returned 04/25/2013 12:00 AM THER/PROPH/DIAG INJ SC/IM Reviewed 04/25/2013 12:00 AM Decadron, Per 1 Mg [facility]# [address]-84 Reviewed 04/25/2013 12:00 AM Depo-Medrol, Per 80 Mg [facility]#9466-3498-97 Reviewed 12/24/2009 12:00 AM ROUTINE VENIPUNCTURE Reviewed [...] 3.89 HGB 12.70 g/dLHCT 37.20 %MCV 96.0 [facility] 32.60 [facility] 34.10 g/dLRDW SD 48 RDW CV 13.90 [...] 2014 8:30AM Hypertension Jun 07 2014 8:30AM longterm use of drug Jun 07 2014 8:30AM Cerumen debris on tympanic membrane Dec 04 2014 2:31PM Chronic kidney disease, Stage II (mild) Dec 07 2014 10:49AM Hyperlipidemia Dec 07 2014 10:49AM Hypertension Dec 07 2014 10:49AM longterm use of drug Dec 07 2014 10:49AM [...] 2016 12:08PM Hypertension Dec 02 2016 12:08PM longterm use of drug Dec 02 2016 12:08PM [...] 2018 10:08AM Hypertension Mar 15 2018 10:08AM 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 Mar 15 2018 10:08AM Gout Mar 15 2018 10:08AM Prostate cancer screening Mar 15 2018 10:08AM Kidney failure Mar 15 2018 3:21PM Elbow abrasion, right, initial encounter Mar 15 2018 3:24PM Back strain, initial encounter Mar 15 2018 3:24PM Fall, initial encounter Mar 15 2018 3:24PM Kidney failure Mar 22 2018 11:08AM Payers Insurance Name Company Name Plan Name Plan Number Policy Number Policy Group Number Start Date Medicare RHC Medicare RHC [id number] N/A BCBS [facility] [id number] N/A Medicare Part A Medicare Part A [id number] N/A Medicare Part A Medicare - Lab/Xray [id number] N/A Nationwide Insurance Nationwide Insurance [id number] N/A Medicare Part B Medicare Of [place] [id number] N/A History of Encounters Visit Date Visit Type Provider 03/22/2018 Office visit AARON MAJOR 03/15/2018 Office visit AARON ROGERS PA 11/04/2017 Office visit AARON MAJOR 05/06/2017 Office visit AARON MAJOR 10/26/2016 Office visit AARON MAJOR 04/10/2016 Office visit AARON MAJOR 03/31/2016 Office visit AARON MAJOR 12/25/2015 Office visit AARON MAJOR 10/21/2015 Office visit AARON MAJOR 06/13/2015 Office visit AARON MAJOR 12/25/2014 Office visit AARON MAJOR 12/07/2014 Office visit AARON MAJOR 12/04/2014 Office visit AARON MAJOR 06/07/2014 Office visit AARON MAJRO 02/05/2014 Office visit AARON MAJOR 12/04/2013 Office visit AARON MAJOR 05/29/2013 Office visit AARON MAJOR 04/25/2013 Office visit AARON MAJOR 09/20/2012 Office visit AARON MAJOR 06/24/2012 Office visit AARON MAJOR 04/18/2012 Office visit AARON ROGERS PA 12/18/2011 Office visit AARON ROGERS PA 11/19/2011 Office visit AARON ROGERS PA 08/24/2011 Office visit AARON MAJOR 05/29/2011 Hospital Ramy Ghosh MD 05/28/2011 [facility] Ramy Ghosh MD 02/06/2011 Office visit Aaron Rogers PA-C 01/19/2011 Office visit Aaron Rogers PA-C 10/20/2010 Office visit Aaron MAJOR-C 10/09/2010 Office visit Aaron Rogers PA-C 12/30/2009 Office visit Aaron Rogers PA-C 12/24/2009 Laboratory Aaron Rogers PA-C 09/24/2009 Laboratory Aaron Rogers PA-C 04/22/2009 Office visit AARON MAJOR
--- OUTSIDE RECORDS SUMMARY | 2018-05-01 23:16 | XMS REPORT ---
Author Author AARON ROGERS [facility] Address [address] [place] [id number] Care Team Providers Care Low Pressure Boiler Tender Name Role Phone AARON ROGERS PCP Allergies and Adverse Reactions Name Reaction Notes [...] HC BMI BSA BMI Percentile O2 Sat(%) 03/15/2018 3:23:00 PM 130 mmHg 70 mmHg [...] 10/21/2015 12:00 AM Decadron, Per 1 Mg [facility] [address]-38 Reviewed 10/21/2015 12:00 AM Rocephin 1 gram [facility]#3743-8692-39 Reviewed 12/25/2015 12:00 AM Removal impacted cerumen [...] AM Flu Injection 3 Years And Above [facility]# [address]-61 RHC Reviewed 09/20/2012 12:00 AM REMOVE IMPACTED EAR WAX UNI Reviewed 03/15/2018 12:00 AM COMPLETE CBC W/AUTO DIFF WBC Returned 03/15/2018 12:00 AM COMPREHEN METABOLIC PANEL Returned 03/15/2018 12:00 AM LIPID PANEL Returned 03/15/2018 12:00 AM Prostate Cancer Screening Returned 03/15/2018 12:00 AM COMPREHEN METABOLIC PANEL Returned 04/25/2013 12:00 AM THER/PROPH/DIAG INJ SC/IM Reviewed 04/25/2013 12:00 AM Decadron, Per 1 Mg [facility]# [address]-21 Reviewed 04/25/2013 12:00 AM Depo-Medrol, Per 80 Mg [facility]9949-5284-81 Reviewed 12/24/2009 12:00 AM ROUTINE VENIPUNCTURE Reviewed [...] 3.60 HGB 11.90 g/dLHCT 35.60 %MCV 99.0 [facility] 33.10 [facility] 33.[facility] g/dLRDW SD 48 RDW CV 13.40 [...] 2014 8:30AM Hypertension Jun 07 2014 8:30AM halfway use of drug Jun 07 2014 8:30AM Cerumen debris on tympanic membrane Dec 04 2014 2:31PM Chronic kidney disease, Stage II (mild) Dec 07 2014 10:49AM Hyperlipidemia Dec 07 2014 10:49AM Hypertension Dec 07 2014 10:49AM 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 07 2014 10:49AM [...] 2016 12:08PM Hypertension Dec 02 2016 12:08PM halfway use of drug Dec 02 2016 12:08PM [...] 2018 10:08AM Hypertension Mar 15 2018 10:08AM halfway use of drug Mar 15 2018 10:08AM Gout Mar 15 2018 10:08AM Prostate cancer screening Mar 15 2018 10:08AM Kidney failure Mar 15 2018 3:21PM Elbow abrasion, right, initial encounter Mar 15 2018 3:24PM Back strain, initial encounter Mar 15 2018 3:24PM Fall, initial encounter Mar 15 2018 3:24PM Payers Insurance Name Company Name Plan Name Plan Number Policy Number Policy Group Number Start Date Medicare [facility] Medicare [facility] [id number] N/A [facility] [id number] N/A Medicare Part A Medicare Part A [id number] N/A Medicare Part A Medicare - Lab/Xray [id number] N/A Medicare Part B Medicare Of [place] [id number] N/A History of Encounters Visit Date Visit Type Provider 03/15/2018 Office visit AARON ROGERS PA 11/04/2017 Office visit AARON ROGERS PA 05/06/2017 Office visit AARON ROGERS PA 10/26/2016 Office visit AARON ROGERS PA 04/10/2016 Office visit AARON ROGERS PA 03/31/2016 Office visit AARON ROGERS PA 12/25/2015 Office visit AARON ROGERS PA 10/21/2015 Office visit AARON ROGERS PA 06/13/2015 Office visit AARON ROGERS PA 12/25/2014 Office visit AARON ROGERS PA 12/07/2014 Office visit AARON ROGERS PA 12/04/2014 Office visit AARON ROGERS PA 06/07/2014 Office visit AARON ROGERS PA 02/05/2014 [...] PA 05/29/2011 Hospital Ramy Ghosh MD 05/28/2011 [facility] Ramy Ghosh MD 02/06/2011 Office visit Aaron Rogers PA-C 01/19/2011 Office visit Aaron Rogers PA-C 10/20/2010 Office visit Aaron Rogers PA-C 10/09/2010 Office visit Aaron Rogers PA-C 12/30/2009 Office visit Aaron Rogers PA-C 12/24/2009 Laboratory Aaron Rogers PA-C 09/24/2009 Laboratory Aaron Rogers PA-C 04/22/2009 Office visit AARON MAJOR
--- OUTSIDE RECORDS SUMMARY | 2018-05-01 23:17 | XMS REPORT ---
Author Author AARON ROGERS [facility] Address [address] [place], [place] [phone] Care Team Providers Care Insurance Administrative Assistant Name Role Phone AARON ROGERS PCP Allergies and Adverse Reactions Name Reaction Notes iodine PENICILLINS Plan of Treatment Planned Activity Comments Planned Date Planned Time Plan/Goal CBC with Differential 03/15/2018 12:00 AM CMP 03/15/2018 12:00 AM Lipid Blood Profile 03/15/2018 12:00 AM CMP 03/15/2018 12:00 AM Medications Active Name Start Date [...] tablet 05/03/2015 12/22/2016 TAKE 1 TABLET ON WED,WED, WED citalopram 20 mg oral tablet 05/31/2015 [...] HC BMI BSA BMI Percentile O2 Sat(%) 11/04/2017 3:32:00 PM 128 mmHg 62 mmHg [...] 10/21/2015 12:00 AM Decadron, Per 1 Mg [facility]# [address]-85 Reviewed 10/21/2015 12:00 AM Rocephin 1 gram [facility]#2678-9731-30 Reviewed 12/25/2015 12:00 AM Removal impacted cerumen [...] AM Flu Injection 3 Years And Above [facility]# [address]-27 RHC Reviewed 09/20/2012 12:00 AM REMOVE IMPACTED EAR WAX UNI Reviewed 04/25/2013 12:00 AM THER/PROPH/DIAG INJ SC/IM Reviewed 04/25/2013 12:00 AM Decadron, Per 1 Mg [facility]# [address]-27 Reviewed 04/25/2013 12:00 AM Depo-Medrol, Per 80 Mg [facility]#0588-7296-67 Reviewed 12/24/2009 12:00 AM ROUTINE VENIPUNCTURE Reviewed [...] 2014 8:30AM Hypertension Jun 07 2014 8:30AM 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 Jun 07 2014 8:30AM Cerumen debris on tympanic membrane Dec 04 2014 2:31PM Chronic kidney disease, Stage II (mild) Dec 07 2014 10:49AM Hyperlipidemia Dec 07 2014 10:49AM Hypertension Dec 07 2014 10:49AM 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 Dec 07 2014 10:49AM [...] 2016 12:08PM Hypertension Dec 02 2016 12:08PM skilled nursing use of drug Dec 02 2016 12:08PM [...] 2018 10:08AM Hypertension Mar 15 2018 10:08AM skilled nursing use of drug Mar 15 2018 10:08AM Gout Mar 15 2018 10:08AM Prostate cancer screening Mar 15 2018 10:08AM Kidney failure Mar 15 2018 3:21PM Payers Insurance Name Company Name Plan Name Plan Number Policy Number Policy Group Number Start Date Medicare RHC Medicare RHC [id number] N/A [facility] [id number] N/A Medicare Part A Medicare Part A [id number] N/A Medicare Part A Medicare - Lab/Xray [id number] N/A Medicare Part B Medicare Of [place] [id number] N/A History of Encounters Visit Date Visit Type Provider 03/15/2018 Office visit AARON MAJOR 11/04/2017 Office visit AARON MAJOR 05/06/2017 Office visit AARON MAJOR 10/26/2016 Office visit AARON MAJOR 04/10/2016 Office visit AARON MAJOR 03/31/2016 Office visit AARON MAJOR 12/25/2015 Office visit AARON ROGERS PA 10/21/2015 [...] 08/24/2011 Office visit AARON ROGERS PA 05/29/2011 [facility] Ramy Ghosh MD 05/28/2011 [facility] Ramy Ghosh MD 02/06/2011 Office visit Aaron Rogers PA-C 01/19/2011 Office visit Aaron Rogers PA-C 10/20/2010 Office visit Aaron Rogers PA-C 10/09/2010 Office visit Aaron Rogers PA-C 12/30/2009 Office visit Aaron Rogers PA-C 12/24/2009 Laboratory Aaron Rogers PA-C 09/24/2009 Laboratory Aaron Rogers PA-C 04/22/2009 Office visit AARON ROGERS PA
--- OUTSIDE RECORDS SUMMARY | 2018-05-01 23:18 | XMS REPORT ---
Author Author AARON ROGERS [facility] Address [address] [place], [place] [phone] Care Team Providers Care Tar Pot Worker Name Role Phone AARON ROGERS PCP Allergies and Adverse Reactions Name Reaction Notes iodine PENICILLINS Plan of Treatment Planned Activity Comments Planned Date Planned Time Plan/Goal CBC with Differential 03/15/2018 12:00 AM CMP 03/15/2018 12:00 AM Lipid Blood Profile 03/15/2018 12:00 AM Medications Active Name Start [...] 10/21/2015 12:00 AM Decadron, Per 1 Mg [facility]# [address]-74 Reviewed 10/21/2015 12:00 AM Rocephin 1 gram [facility]#7965-9521-87 Reviewed 12/25/2015 12:00 AM Removal impacted cerumen [...] AM Flu Injection 3 Years And Above [facility]# [address]-32 RHC Reviewed 09/20/2012 12:00 AM REMOVE IMPACTED EAR WAX UNI Reviewed 04/25/2013 12:00 AM THER/PROPH/DIAG INJ SC/IM Reviewed 04/25/2013 12:00 AM Decadron, Per 1 Mg [facility]# [address]-25 Reviewed 04/25/2013 12:00 AM Depo-Medrol, Per 80 Mg [facility]#7510-1049-47 Reviewed 12/24/2009 12:00 AM ROUTINE VENIPUNCTURE Reviewed [...] 2014 8:30AM Hypertension Jun 07 2014 8:30AM 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 07 2014 8:30AM Cerumen debris on tympanic membrane Dec 04 2014 2:31PM Chronic kidney disease, Stage II (mild) Dec 07 2014 10:49AM Hyperlipidemia Dec 07 2014 10:49AM Hypertension Dec 07 2014 10:49AM 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 07 2014 10:49AM [...] 12:08PM Hypertension Dec 02 2016 12:08PM 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 02 2016 [...] 2018 10:08AM Hypertension Mar 15 2018 10:08AM detention use of drug Mar 15 2018 10:08AM Gout Mar 15 2018 10:08AM Prostate cancer screening Mar 15 2018 10:08AM Payers Insurance Name Company Name Plan Name Plan Number Policy Number Policy Group Number Start Date Medicare RHC Medicare RHC [id number] N/A [id number] N/A Medicare Part A Medicare Part A [id number] N/A Medicare Part A Medicare - Lab/Xray [id number] N/A Medicare Part B Medicare Of [place] [id number] N/A History of Encounters Visit Date Visit Type Provider 11/04/2017 Office visit AARON MAJOR 05/06/2017 Office visit AARON MAJOR 10/26/2016 Office visit AARON MAJOR 04/10/2016 Office visit AARON MAJOR 03/31/2016 Office visit AARON MAJOR 12/25/2015 Office visit AARON MAJOR 10/21/2015 Office visit AARON MAJOR 06/13/2015 Office visit AARON ROGERS PA 12/25/2014 Office visit AARON ROGESR PA 12/07/2014 Office visit AARON ROGERS PA [...] 08/24/2011 Office visit AARON ROGERS PA 05/29/2011 [facility] Ramy Ghosh MD 05/28/2011 [facility] Ramy Ghosh MD 02/06/2011 Office visit Aaron Rogers PA-C 01/19/2011 Office visit Aaron Rogers PA-C 10/20/2010 Office visit Aaron Rogers PA-C 10/09/2010 Office visit Aaron Rogers PA-C 12/30/2009 Office visit Aaron Rogers PA-C 12/24/2009 Laboratory Aaron Rogers PA-C 09/24/2009 Laboratory Aaron Rogers PA-C 04/22/2009 Office visit AARON MAJOR
[2018-05-01] MEDS ORDERED: NS IV 1000 ML 1,000 ML IV SCH (23:19)
--- NOTE | 2018-05-01 23:19 | ED Respiratory ---
General Stated Complaint: FEVER Source: patient, EMS, [facility] records Exam Limitations: no limitations History of Present Illness Date Seen by Provider: May 01, 2018 Time Seen by Provider: 23:09 Initial Comments Patient presents to ER by EMS with chief complaint is coming from assisted living where for the past several days he's been treated with Tylenol for her fever. His nurse's of note he is had some wheezing but no cough per EMS no wheezing. EMS. He had a temperature of 100.1F when they picked him up. His been getting weaker. He is not on antibiotics or had any workup for it. He's been getting in his own vehicle driving out to [employer] to help out in the field with his family. He has not seen a doctor for this yet. He is not having any painful urination, nausea, chest pain, shortness of breath but he is having increased weakness, fatigue, malaise. Allergies and Home Medications Allergies Coded Allergies: iodine (Verified Allergy, Unknown, 05/01/18) Penicillins (Verified Adverse Reaction, Unknown, 05/01/18) Pt states unknown Patient Home Medication List Home Medication List Reviewed: Yes Review of Systems Review of Systems Constitutional: No chills; fever, malaise, weakness EENTM: No hearing loss, No ear pain Respiratory: No cough, No phlegm, No short of breath; wheezing Cardiovascular: No chest pain, No edema Gastrointestinal: No abdominal pain, No constipation, No diarrhea Genitourinary: No dysuria, No frequency Musculoskeletal: No back pain, No joint pain Skin: No pruritus, No rash Psychiatric/Neurological: Denies Headache, Denies Numbness All Other Systems Reviewed Negative Unless Noted: Yes Past Vpfzkbo-Mahqsw-Wlhmbf Hx Patient Social History Alcohol Use: Denies Use Recreational Drug Use: No Smoking Status: Never a Smoker Recent Foreign Travel: No Contact w/Someone Who Travel: No Physical Exam Capillary Refill : Height: '" Weight: lbs. oz. kg; BMI Method: General Appearance: WD/WN, mild distress Eyes: Bilateral Eye Normal Inspection, Bilateral Eye PERRL, Bilateral Eye EOMI HEENT: PERRL/EOMI, normal ENT inspection, pharynx normal Neck: non-tender, supple, normal inspection Respiratory: chest non-tender, no respiratory distress, no accessory muscle use , decreased breath sounds; No crackles Cardiovascular: normal peripheral pulses, regular rate, rhythm, other (trace bilateral lower extremity edema) Gastrointestinal: non tender, soft, no organomegaly Neurologic/Psychiatric: alert, oriented x 3 Skin: normal color, warm/dry Focused Exam Lactate Level 05/01/18 23:13: Lactic Acid Level 0.97 Lactic Acid Level Laboratory Tests Test 05/01/18 23:13 Lactic Acid Level 0.97 MMOL/L (0.50-2.00) Progress/Results/Core Measures Suspected Sepsis SIRS Temperature: Pulse: Respiratory Rate: Laboratory Tests 05/01/18 23:13: White Blood Count 7.4 Blood Pressure / Mean: 05/01/18 23:13: Lactic Acid Level 0.97 Laboratory Tests 05/01/18 23:13: Creatinine 2.35H, Platelet Count 318, Total Bilirubin 0.2 Results/Orders Lab Results Laboratory Tests Test 05/01/18 01:33 05/01/18 23:13 Range/Units White Blood Count 7.4 4.3-11.0 10^3/uL Red Blood Count 2.93 L 4.35-5.85 10^6/uL Hemoglobin 9.5 L 13.3-17.7 G/DL Hematocrit 27 L 40-54 % Mean Corpuscular Volume 93 80-99 FL Mean Corpuscular Hemoglobin 32 25-34 PG Mean Corpuscular Hemoglobin Concent 35 32-36 G/DL Red Cell Distribution Width 13.4 10.0-14.5 % Platelet Count 318 130-400 10^3/uL Mean Platelet Volume 8.8 7.4-10.4 FL Neutrophils (%) (Auto) 68 42-75 % Lymphocytes (%) (Auto) 16 12-44 % Monocytes (%) (Auto) 15 H 0-12 % Eosinophils (%) (Auto) 1 0-10 % Basophils (%) (Auto) 0 0-10 % Neutrophils # (Auto) 5.0 1.8-7.8 X 10^3 Lymphocytes # (Auto) 1.2 1.0-4.0 X 10^3 Monocytes # (Auto) 1.1 H 0.0-1.0 X 10^3 Eosinophils # (Auto) 0.1 0.0-0.3 10^3/uL Basophils # (Auto) 0.0 0.0-0.1 10^3/uL Sodium Level 132 L 135-145 MMOL/L Potassium Level 4.4 3.6-5.0 MMOL/L Chloride Level 104 98-107 MMOL/L Carbon Dioxide Level 18 L 21-32 MMOL/L Anion Gap 10 5-14 MMOL/L Blood Urea Nitrogen 46 H 7-18 MG/DL Creatinine 2.35 H 0.60-1.30 MG/DL Estimat Glomerular Filtration Rate 26 BUN/Creatinine Ratio 20 Glucose Level 145 H 70-105 MG/DL Lactic Acid Level 0.97 0.50-2.00 MMOL/L Calcium Level 8.5 8.5-10.1 MG/DL Corrected Calcium 9.1 8.5-10.1 MG/DL Total Bilirubin 0.2 0.1-1.0 MG/DL Aspartate Amino Transf (AST/SGOT) 14 5-34 U/L Alanine Aminotransferase (ALT/SGPT) 9 0-55 U/L Alkaline Phosphatase 89 40-136 U/L C-Reactive Protein High Sensitivity 17.68 H 0.00-0.50 MG/DL B-Type Natriuretic Peptide 187.8 H <100.0 PG/ML Total Protein 6.4 6.4-8.2 GM/DL Albumin 3.2 3.2-4.5 GM/DL My Orders Orders - RY,BENIGNO J Chest 1 View, Ap/Pa Only (05/01/18 23:19) BNP (05/01/18 23:19) Cbc With Automated Diff (05/01/18 23:19) Comprehensive Metabolic Panel (05/01/18 23:19) Hs C Reactive Protein (05/01/18 23:19) Ua Culture If Indicated (05/01/18 23:19) Blood Culture (05/01/18 23:19) Sputum Culture (05/01/18 23:19) Saline Lock/Iv-Start (05/01/18 23:19) Ns Iv 1000 Ml (Sodium Chloride 0.9%) (05/01/18 23:19) Lactic Acid Analyzer (05/01/18 23:19) Cefepime Injection (Maxipime Injection) (05/01/18 23:30) Saline Lock/Iv-Start (05/02/18 00:33) Ns Iv 500 Ml (Sodium Chloride 0.9%) (05/02/18 00:33) Albuterol/Ipra Inhalation Soln (Duoneb I (05/02/18 01:00) Svn Small Volume Nebulizer (05/02/18 00:48) Medications Given in ED Current Medications Medications Dose Ordered Sig/Yareli Route Start Time Stop Time Status Last Admin Dose Admin Albuterol/ Ipratropium 3 ml ONCE ONCE INH 05/02/18 01:00 05/02/18 01:01 DC 05/02/18 01:06 3 ML Cefepime HCl 2000 mg/Sodium Chloride 50 ml @ 100 mls/hr ONCE ONCE IV 05/01/18 23:30 05/01/18 23:59 DC 05/01/18 23:42 100 MLS/HR Sodium Chloride 500 ml @ 0 mls/hr Q0M ONCE IV 05/02/18 00:33 05/02/18 00:34 DC 05/02/18 00:43 999 MLS/HR Vital Signs/I&O Capillary Refill : Progress Note : Time: 00:38 Progress Note Patient has a normal heart rate, oxygen saturation above 96% on room air and no labored breathing or coughing. Staff reports she's had some productive cough, fevers treated with Tylenol and wheezing and has received some DuoNeb treatments. Chest x-ray and some labs and giving a 1500 mL bolus which would be more than 20 mL/kg bolus. We'll try and get a urine sample out of him as well. Diagnostic Imaging Diagonstic Imaging: Xray Plain Films/CT/US/NM/MRI: chest Comments right fluffy Middle/Upper lobe infiltrate around the hilum. Enlarged heart. Reviewed: Reviewed by Me Departure Communication (Admissions) Time/Spoke to Admitting Phy: 02:00 Dr. Caballero; agrees to accept the patient after discussing antibiotic choice, labs , imaging, EKG. Impression Primary Impression: Pneumonia Qualified Codes: J18.1 - Lobar pneumonia, unspecified organism Disposition: ADMITTED INPATIENT Condition: Stable Admissions Decision to Admit Reason: Admit from ER (General) Decision to Admit/Date: May 02, 2018 Time/Decision to Admit Time: 00:59 Departure-Patient Inst. Referrals: ALLYSSA ROGERS (PCP) Primary Care Physician BENIGNO RAZA May 01, 2018 23:19
--- OUTSIDE RECORDS SUMMARY | 2018-05-01 23:19 | XMS REPORT ---
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 Medications Active Name Start Date Estimated Completion Date SIG Comments lisinopril 20 mg oral tablet 03/12/2014 take 1 tablet (20 mg) by oral route once daily Celexa 20 mg oral tablet 03/30/2014 take 1 tablet (20 mg) by oral route once daily amlodipine 5 mg oral tablet 04/12/2014 take 1 tablet (5 mg) by oral route once daily pravastatin 40 mg oral tablet 04/12/2014 take 1 tablet by oral route three times a week flecainide 100 mg oral tablet 05/09/2014 half tablet BID pravastatin 40 mg oral tablet 09/24/2014 TAKE ONE TABLET BY MOUTH THREE TIMES A WEEK amlodipine 5 mg oral tablet 10/11/2014 TAKE ONE TABLET BY MOUTH ONCE DAILY flecainide 50 mg oral tablet 11/08/2014 TAKE ONE TABLET BY MOUTH TWICE DAILY pravastatin 40 mg oral tablet 11/22/2014 TAKE ONE TABLET BY MOUTH THREE TIMES A WEEK amlodipine 5 mg oral tablet 12/10/2014 TAKE ONE TABLET BY MOUTH ONCE DAILY pravastatin 40 mg oral tablet 12/18/2014 TAKE ONE TABLET BY MOUTH THREE TIMES A WEEK flecainide 50 mg oral tablet 12/26/2014 TAKE ONE TABLET BY MOUTH TWICE DAILY lisinopril 20 mg oral tablet 03/25/2015 TAKE ONE TABLET BY MOUTH ONCE DAILY pravastatin 40 mg oral tablet 05/03/2015 TAKE 1 TABLET ON MON,WED,WED lisinopril 20 mg oral tablet 05/17/2015 TAKE 1 TABLET DAILY Xanax 0.25 mg oral tablet 05/28/2015 Take One by Mouth Twice Daily flecainide 50 mg oral tablet 05/31/2015 TAKE 1 TABLET TWICE A DAY amlodipine 5 mg oral tablet 05/31/2015 TAKE 1 TABLET DAILY citalopram 20 mg oral tablet 05/31/2015 TAKE 1 TABLET DAILY Name Start Date Expiration Date SIG Comments Tylenol 325 mg oral tablet 10/07/2012 take 1 - 2 tablets (325 - 650 mg) by oral route every 4 hours as needed for pain or fever alprazolam 0.5 mg oral tablet 12/21/2012 12/16/2013 TAKE ONE-HALF TABLET BY MOUTH TWICE DAILY Zithromax Z-Isac 250 mg oral tablet 04/25/2013 [...] oral route every 4 hours as needed Phone order from [facility] to [facility] citalopram 20 mg oral tablet 04/01/2015 TAKE ONE TABLET BY MOUTH ONCE DAILY Discontinued Name Start Date Discontinued Date [...] by oral route 2 times a day Problem List Description Status Onset Arthritis unspecified Active Hyperlipidemia Active Hypertension Active Kidney Disease Active Chronic kidney disease, Stage II (mild) Active 05/30/2013 Vital Signs Date Time BP-Sys(mm[Hg] BP-Donna(mm[Hg]) HR(bpm) RR(rpm) Temp WT HT HC BMI BSA BMI Percentile O2 Sat(%) 06/13/2015 11:21:00 AM 148 mmHg 70 mmHg [...] of Procedures Date Ordered Description Order Status 09/24/2009 12:00 AM ROUTINE VENIPUNCTURE Reviewed 09/24/2009 12:00 AM LIPID PANEL Reviewed 09/24/2009 12:00 AM HEPATIC FUNCTION PANEL Reviewed 11/19/2011 12:00 AM ROUTINE VENIPUNCTURE Reviewed 11/19/2011 12:00 AM COMPREHEN METABOLIC PANEL Reviewed 11/19/2011 12:00 AM LIPID PANEL Reviewed 12/18/2011 12:00 AM ROUTINE VENIPUNCTURE Reviewed 12/18/2011 12:00 AM COMPREHEN METABOLIC PANEL Returned 04/18/2012 12:00 AM ROUTINE VENIPUNCTURE Reviewed 04/18/2012 12:00 AM COMPREHEN METABOLIC PANEL Reviewed 04/18/2012 12:00 AM LIPID PANEL Reviewed 04/18/2012 12:00 AM COMPLETE CBC W/AUTO DIFF WBC Reviewed 04/18/2012 12:00 AM Prostate Cancer Screening Reviewed 06/24/2012 12:00 AM Flu Injection 3 Years [facility] Above [facility]# [address]-25 RHC Reviewed 09/20/2012 12:00 AM REMOVE IMPACTED EAR WAX UNI Reviewed 04/25/2013 12:00 AM THER/PROPH/DIAG INJ SC/IM Reviewed 04/25/2013 12:00 AM Decadron, Per 1 Mg [facility]# [address]-26 Reviewed 04/25/2013 12:00 AM Depo-Medrol, Per 80 Mg [facility]#2313-7617-71 Reviewed 12/24/2009 12:00 AM ROUTINE VENIPUNCTURE Reviewed [...] AM COMPLETE CBC W/AUTO DIFF WBC Returned 06/07/2014 12:00 AM COMPREHEN METABOLIC PANEL Returned 06/07/2014 12:00 AM LIPID PANEL Returned 06/07/2014 12:00 AM ROUTINE VENIPUNCTURE Reviewed 01/19/2011 12:00 AM ROUTINE VENIPUNCTURE Reviewed 12/07/2014 12:00 AM COMPLETE CBC W/AUTO DIFF WBC Returned 12/07/2014 12:00 AM COMPREHEN METABOLIC PANEL Returned 01/19/2011 12:00 AM COMPLETE CBC W/AUTO DIFF WBC Reviewed 12/07/2014 12:00 AM LIPID PANEL Returned 12/07/2014 12:00 AM ROUTINE VENIPUNCTURE Reviewed 01/19/2011 12:00 AM COMPREHEN METABOLIC PANEL Reviewed 01/19/2011 12:00 AM LIPID PANEL Reviewed 01/19/2011 12:00 AM ASSAY OF PSA TOTAL Reviewed 12/25/2014 12:00 AM DRAINAGE OF SKIN ABSCESS Reviewed 02/06/2011 12:00 AM OCCULT BLD FECES 1-3 TESTS Reviewed Results Summary Data and Description Results 12/24/2009 4:30 PM TRIGLYCERIDES 116.0 mg/dLCHOLESTEROL 205.0 mg/dLHDL 51.0 mg/ dLLDL 123.0 mg/dLGLUCOSE 94.0 mg/dLSODIUM 137.0 mmol/LPOTASSIUM 5.10 mmol/ LCHLORIDE 103.0 mmol/LCO2 25.0 mmol/LBUN 34.0 mg/dLCREATININE 1.70 mg/dLSGOT/ AST 13.0 IU/LSGPT/ALT < 6 IU/LALK PHOS 89.0 IU/LTOTAL PROTEIN 7.20 g/ dLALBUMIN 4.60 g/dLTOTAL BILI 0.40 mg/dLCALCIUM 9.50 mg/dLeGFR 39 WBC 7.1 RBC 3.98 HGB 13.0 g/dLHCT 37.10 %MCV 93.0 fLMCH 32.70 pgMCHC 35.0 g/dLRDW CV 12.20 % MPV 9.40 fLPLT 228 %NEUT 56.70 %%LYMP 28.40 %%MONO 9.0 %%EOS 5.50 %%BASO 0.40 %# NEUT 4.05 #LYMP 2.03 #MONO 0.64 #EOS 0.39 #BASO 0.03 01/19/2011 4:04 PM TRIGLYCERIDES 111.0 mg/dLCHOLESTEROL 167.0 mg/dLHDL 43.0 mg/ dLLDL 105.0 mg/dLGLUCOSE 102.0 mg/dLSODIUM 133.0 mmol/LPOTASSIUM 4.70 mmol/ LCHLORIDE 102.0 mmol/LCO2 20.0 mmol/LBUN 33.0 mg/dLCREATININE 1.80 mg/dLSGOT/ AST 12.0 IU/LSGPT/ALT < 6 IU/LALK PHOS 81.0 IU/LTOTAL PROTEIN 7.20 g/ dLALBUMIN 4.30 g/dLTOTAL BILI 0.30 mg/dLCALCIUM 9.50 mg/dLeGFR 37 WBC 7.3 RBC 3.75 HGB 11.90 g/dLHCT 35.0 %MCV 93.0 fLMCH 31.70 pgMCHC 34.0 g/dLRDW CV 12.60 % MPV 9.50 fLPLT 259 %NEUT 59.50 %%LYMP 27.30 %%MONO 8.70 %%EOS 3.80 %%BASO 0.70 % #NEUT 4.36 #LYMP 2.00 #MONO 0.64 #EOS 0.28 #BASO 0.05 01/19/2011 4:26 PM PSA TOTAL 1.840 ng/mL 12/18/2011 5:36 PM GLUCOSE 102.0 mg/dLSODIUM 131.0 mmol/LPOTASSIUM 5.40 mmol/ LCHLORIDE 99.0 mmol/LCO2 21.0 mmol/LBUN 34.0 mg/dLCREATININE 2.30 mg/dLSGOT/AST 17.0 IU/LSGPT/ALT 12.0 IU/LALK PHOS 96.0 IU/LTOTAL PROTEIN 7.30 g/dLALBUMIN 4.40 g/dLTOTAL BILI 0.40 mg/dLCALCIUM 9.30 mg/dLeGFR 27 04/18/2012 4:07 PM WBC 7.2 RBC 3.89 HGB 12.70 g/dLHCT 37.20 %MCV 96.0 fLMCH 32.60 pgMCHC 34.10 g/dLRDW CV 13.90 %MPV 9.60 fLPLT 266 GLUCOSE 94.0 mg/ dLSODIUM 134.0 mmol/LPOTASSIUM 4.50 mmol/LCHLORIDE 102.0 mmol/LCO2 22.0 mmol/ LBUN 32.0 mg/dLCREATININE 2.0 mg/dLSGOT/AST 16.0 IU/LSGPT/ALT 10.0 IU/LALK PHOS 92.0 IU/LTOTAL PROTEIN 7.40 g/dLALBUMIN 4.40 g/dLTOTAL BILI 0.60 mg/dLCALCIUM 9.50 mg/dLeGFR 32 PSA TOTAL 2.120 ng/mLTRIGLYCERIDES 114.0 mg/dLCHOLESTEROL 181.0 mg/dLHDL 58.0 mg/dLLDL (CALC) 100.0 mg/dL 02/05/2014 3:20 PM WBC 10.8 RBC 3.67 HGB 12.10 g/dLHCT 35.40 %MCV 97.0 fLMCH 33.0 pgMCHC 34.20 g/dLRDW CV 13.30 %MPV 9.10 fLPLT 369 %NEUT 76.80 %%LYMP 11.90 %%MONO 10.30 %%EOS 0.70 %%BASO 0.30 %#NEUT 8.28 #LYMP 1.28 #MONO 1.11 #EOS 0.08 #BASO 0.03 GLUCOSE 80.0 mg/dLSODIUM 136.0 mmol/LPOTASSIUM 4.30 mmol/LCHLORIDE 101.0 mmol/LCO2 21.0 mmol/LBUN 26.0 mg/dLCREATININE 1.60 mg/dLSGOT/AST 20.0 IU/ LSGPT/ALT 11.0 IU/LALK PHOS 91.0 IU/LTOTAL PROTEIN 7.30 g/dLALBUMIN 4.10 g/ dLTOTAL BILI 0.40 mg/dLCALCIUM 8.90 mg/dLeGFR 42 06/07/2014 4:01 PM WBC 8.5 RBC 3.60 HGB 11.90 g/dLHCT 35.60 %MCV 99.0 fLMCH 33.10 pgMCHC 33.40 g/dLRDW CV 13.40 %MPV 9.30 fLPLT 285 %NEUT 63.60 %%LYMP 22.50 %%MONO 8.70 %%EOS 4.60 %%BASO 0.60 %#NEUT 5.43 #LYMP 1.92 #MONO 0.74 #EOS 0.39 #BASO 0.05 TRIGLYCERIDES 62.0 mg/dLCHOLESTEROL 189.0 mg/dLHDL 77.0 mg/ dLLDL (CALC) 100.0 mg/dLGLUCOSE 99.0 mg/dLSODIUM 134.0 mmol/LPOTASSIUM 5.20 mmol /LCHLORIDE 102.0 mmol/LCO2 20.0 mmol/LBUN 41.0 mg/dLCREATININE 1.70 mg/dLSGOT/ AST 18.0 IU/LSGPT/ALT 10.0 IU/LALK PHOS 113.0 IU/LTOTAL PROTEIN 7.60 g/ dLALBUMIN 4.30 g/dLTOTAL BILI 0.50 mg/dLCALCIUM 9.50 mg/dLeGFR 39 12/07/2014 4:23 PM GLUCOSE 96.0 mg/dLSODIUM 134.0 mmol/LPOTASSIUM 5.0 mmol/ LCHLORIDE 102.0 mmol/LCO2 22.0 mmol/LBUN 32.0 mg/dLCREATININE 1.80 mg/dLSGOT/ AST 18.0 IU/LSGPT/ALT 12.0 IU/LALK PHOS 95.0 IU/LTOTAL PROTEIN 7.70 g/dLALBUMIN 3.70 g/dLTOTAL BILI 0.60 mg/dLCALCIUM 9.50 mg/dLeGFR 36 WBC 8.4 RBC 3.67 HGB 11.90 g/dLHCT 35.30 %MCV 96.0 fLMCH 32.40 pgMCHC 33.70 g/dLRDW CV 13.60 %MPV 9.80 fLPLT 257 %NEUT 64.30 %%LYMP 24.60 %%MONO 6.90 %%EOS 4.0 %%BASO 0.20 %# NEUT 5.42 #LYMP 2.07 #MONO 0.58 #EOS 0.34 #BASO 0.02 TRIGLYCERIDES 71.0 mg/ dLCHOLESTEROL 212.0 mg/dLHDL 74.0 mg/dLLDL (CALC) 124.0 mg/dL History Of Immunizations Not [...] 2014 8:30AM Hypertension Jun 07 2014 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 8:30AM Cerumen debris on tympanic membrane Dec 04 2014 2:31PM Chronic kidney disease, Stage II (mild) Dec 07 2014 10:49AM Hyperlipidemia Dec 07 2014 10:49AM Hypertension Dec 07 2014 10:49AM 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 07 2014 10:49AM Sebaceous Cyst, upper back Dec 25 2014 4:18PM Moderate Acute Cerumen Impaction Worsening Jun 13 2015 11:21AM 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 Stable Jun 13 2015 11:21AM Payers Insurance Name Company Name Plan Name Plan Number Policy Number Policy Group Number Start Date Medicare Part A Medicare Part A [id number] N/A [facility] [id number] N/A Medicare Part B Medicare Of [place] [id number] N/A History of Encounters Visit Date Visit Type Provider 06/13/2015 Office visit AARON MAJOR 12/25/2014 Office [...] MAJOR 08/24/2011 Office visit AARON MAJOR 05/29/2011 [facility] Ramy Ghosh MD 05/28/2011 [facility] Ramy Ghosh MD 02/06/2011 Office visit Aaron Rogers PA-C 01/19/2011 Office visit Aaron Rogers PA-C 10/20/2010 Office visit Aaron Rogers PA-C 10/09/2010 Office visit Aaron MAJOR-C 12/30/2009 Office visit Aaron Rogers PA-C 12/24/2009 Laboratory Aaron Rogers PA-C 09/24/2009 Laboratory Aaron Rogers PA-C 04/22/2009 Office visit AARON MAJOR
--- OUTSIDE RECORDS SUMMARY | 2018-05-01 23:19 | XMS REPORT ---
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 Role Phone AARON ROGERS PCP Unavailable [...] by oral route three times a week pravastatin 40 mg oral tablet 09/24/2014 TAKE [...] 05/28/2015 Take One by Mouth Twice Daily amlodipine 5 mg oral tablet 05/31/2015 TAKE 1 TABLET DAILY citalopram 20 mg oral tablet 05/31/2015 TAKE 1 TABLET DAILY aspirin 81 mg oral tablet,delayed release (DR/EC) 08/05/2015 take 1 tablet (81 mg) by oral route once daily flecainide 50 mg oral tablet 10/07/2015 TAKE 1 TABLET TWICE A DAY Levaquin 500 mg oral tablet 10/22/2015 11/01/2015 take 1 tablet (500 mg) by oral route once daily for 10 days Name Start Date Expiration [...] 4 hours as needed Phone order from [facility] citalopram 20 mg oral tablet 04/01/2015 TAKE ONE TABLET BY MOUTH ONCE DAILY Zithromax Z-Isac 250 mg oral tablet 10/21/2015 10/26/2015 take 2 tablets (500 mg) by oral route once daily for 1 day then 1 tablet (250 mg) by oral route once daily for 4 days Discontinued Name Start Date Discontinued Date SIG [...] oral tablet 05/09/2014 08/05/2015 half tablet BID Problem List Description Status Onset Arthritis unspecified Active Hyperlipidemia Active Hypertension Active Kidney Disease Active Chronic kidney disease, Stage II (mild) Active 05/30/2013 Vital Signs Date Time BP-Sys(mm[Hg] BP-Donna(mm[Hg]) HR(bpm) RR(rpm) Temp WT HT HC BMI BSA BMI Percentile O2 Sat(%) 10/21/2015 3:51:00 PM 135 mmHg 70 mmHg 85 bpm 18 rpm 99.6 F 145 lbs 66 in 23.40 kg/m2 1.75 m2 95 % 06/13/2015 11:21:00 AM 148 mmHg 70 mmHg 70 bpm 16 rpm 99.5 F 143 lbs 67 in 22.3967 kg/m 1.7511 m 98 % 12/04/2014 2:30:00 PM 140 mmHg 80 mmHg 82 bpm 20 rpm 98.2 F 141 lbs 67 in 22.08 kg/m2 1.74 m2 97 % 02/05/2014 11:18:00 AM 144 mmHg 72 mmHg 90 bpm 20 rpm 97.8 F 142 lbs 67 in 22.2401 kg/m 1.7449 m 97 % 12/04/2013 11:17:00 AM 130 mmHg 70 mmHg 80 bpm 20 rpm 96.9 F 147.375 lbs 67 in 23.08 kg/m2 1.78 m2 97 % 05/29/2013 1:35:00 PM 130 mmHg 60 mmHg 84 bpm 16 rpm 97.3 F 145 lbs 67 in 22.71 kg/m 1.7633 m 98 % 04/25/2013 10:00:00 AM 136 mmHg 72 mmHg 84 bpm 20 rpm 98 F 148 lbs 67 in 23.18 kg/m2 1.78 m2 97 % 04/18/2012 8:57:00 AM 140 mmHg 64 mmHg 60 bpm 16 rpm 138 lbs 67 in 21.6136 kg/m 1.7202 m 100 % 08/24/2011 10:09:00 AM 136 mmHg [...] AM Flu Injection 3 Years And Above [facility]# [address]-45 RHC Reviewed 09/20/2012 12:00 AM REMOVE IMPACTED EAR WAX UNI Reviewed 04/25/2013 12:00 AM THER/PROPH/DIAG INJ SC/IM Reviewed 04/25/2013 12:00 AM Decadron, Per 1 Mg [facility]# [address]-81 Reviewed 04/25/2013 12:00 AM Depo-Medrol, Per 80 Mg [facility]#8805-1961-44 Reviewed 12/24/2009 12:00 AM ROUTINE VENIPUNCTURE Reviewed [...] 2014 8:30AM Hypertension Jun 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 8:30AM Cerumen debris on tympanic membrane Dec 04 2014 2:31PM Chronic kidney disease, Stage II (mild) Dec 07 2014 10:49AM Hyperlipidemia Dec 07 2014 10:49AM Hypertension Dec 07 2014 10:49AM alf use of drug Dec 07 2014 10:49AM [...] Acute Chest congestion Oct 21 2015 3:51PM Payers Insurance Name Company Name Plan Name Plan Number Policy Number Policy Group Number Start Date Medicare Part A Medicare Part A [id number] N/A [facility] [id number] N/A Medicare Part B Medicare Of [place] [id number] N/A History of Encounters Visit Date Visit Type Provider 10/21/2015 Office visit AARON MAJOR 06/13/2015 Office [...] MAJOR 08/24/2011 Office visit AARON MAJOR 05/29/2011 [facility] Ramy Ghosh MD 05/28/2011 [facility] Ramy Ghosh MD 02/06/2011 Office visit Aaron Rogers PA-C 01/19/2011 Office visit Aaron Rogers PA-C 10/20/2010 Office visit Aaron Rogers PA-C 10/09/2010 Office visit Aaron Rogers PA-C 12/30/2009 Office visit Aaron Rogers PA-C 12/24/2009 Laboratory Aaron Rogers PA-C 09/24/2009 Laboratory Aaron Rogers PA-C 04/22/2009 Office visit AARON MAJOR
--- OUTSIDE RECORDS SUMMARY | 2018-05-01 23:20 | XMS REPORT ---
Author Author [facility] Organization [facility] Address [address] [place] [id number] Care Team Providers Care Lead Painter Name Role Phone PCP Unavailable Allergies and Adverse Reactions Name Reaction Notes iodine PENICILLINS Plan of Treatment Planned Activity Comments Planned Date Planned Time Plan/Goal COMPLETE CBC W/AUTO DIFF WBC 12/07/2014 12:00 AM COMPREHEN METABOLIC PANEL 12/07/2014 12:00 AM LIPID PANEL 12/07/2014 12:00 AM Medications Active Name Start Date Estimated Completion Date SIG Comments Tylenol Oral tablet 325 mg 10/07/2012 take 1 - 2 tablets (325 - 650 mg) by oral route every 4 hours as needed for pain or fever aspirin oral tablet,chewable 81 mg 11/28/2013 chew 1 tablet (81 mg) by oral route once daily clonidine oral tablet 0.1 mg 11/28/2013 take 1 tablet by oral route every 6 hours as needed Colace oral capsule 100 mg 11/28/2013 take 1 capsule (100 mg) by oral route once daily tramadol oral tablet 50 mg 01/29/2014 take 1 tablet (50 mg) by oral route every 4 hours as needed Phone order from [facility] to [facility] lisinopril oral tablet 20 mg 03/12/2014 take 1 tablet (20 mg) by oral route once daily Celexa oral tablet 20 mg 03/30/2014 take 1 tablet (20 mg) by oral route once daily amlodipine oral tablet 5 mg 04/12/2014 take 1 tablet (5 mg) by oral route once daily pravastatin oral tablet 40 mg 04/12/2014 take 1 tablet by oral route three times a week flecainide oral tablet 100 mg 05/09/2014 half tablet BID Xanax oral tablet 0.25 mg 07/02/2014 Take One by Mouth Twice Daily pravastatin oral tablet 40 mg 09/24/2014 TAKE ONE TABLET BY MOUTH THREE TIMES A WEEK amlodipine oral tablet 5 mg 10/11/2014 TAKE ONE TABLET BY MOUTH ONCE DAILY flecainide oral tablet 50 mg 11/08/2014 TAKE ONE TABLET BY MOUTH TWICE DAILY pravastatin oral tablet 40 mg 11/22/2014 TAKE ONE TABLET BY MOUTH THREE TIMES A WEEK Name Start Date Expiration Date SIG Comments alprazolam Oral tablet 0.5 mg 12/21/2012 12/16/2013 TAKE ONE-HALF TABLET BY MOUTH TWICE DAILY Zithromax Z-Isac Oral Tablet 250 mg 04/25/2013 take 2 tablets (500 mg) by oral route once daily for 1 day then 1 tablet (250 mg) by oral route once daily for 4 days Discontinued Name Start Date Discontinued Date SIG Comments Flecainide Oral Tablet 100 mg 10/14/2009 deleted Tambocor Oral Tablet 100 mg 11/20/2010 11/28/2013 .5BID - TAKE ONE-HALF TABLET BY MOUTH TWICE DAILY flecainide Oral Tablet 100 mg 03/20/2011 11/28/2013 TAKE ONE-HALF TABLET BY MOUTH TWICE DAILY lisinopril-hydrochlorothiazide Oral Tablet 20-12.5 mg 09/15/2011 11/28/2013 TAKE ONE TABLET BY MOUTH EVERY DAY alprazolam oral tablet 0.5 mg 02/12/2014 03/23/2014 take 0.5 unspecified by oral route 2 times a day Problem List Description Status Onset Arthritis unspecified Active Hyperlipidemia Active Hypertension Active Kidney Disease Active Chronic kidney disease, Stage II (mild) Active 05/30/2013 Vital Signs Date Time BP-Sys(mm[Hg] BP-Donna(mm[Hg]) HR(bpm) RR(rpm) Temp WT HT HC BMI BSA BMI Percentile O2 Sat(%) 12/04/2014 2:30:00 PM 140 mmHg 80 mmHg [...] AM COMPLETE CBC W/AUTO DIFF WBC Reviewed 09/20/2012 12:00 AM REMOVE IMPACTED EAR WAX UNI Reviewed 04/25/2013 12:00 AM THER/PROPH/DIAG INJ SC/IM Reviewed 12/24/2009 12:00 AM ROUTINE VENIPUNCTURE Reviewed [...] 05/28/2014 12:00 AM COMPREHEN METABOLIC PANEL Reviewed 05/28/2014 12:00 AM LIPID PANEL Reviewed [...] Reviewed 01/19/2011 12:00 AM ROUTINE VENIPUNCTURE Reviewed 01/19/2011 12:00 AM COMPLETE CBC W/AUTO DIFF WBC Reviewed 12/07/2014 12:00 AM ROUTINE VENIPUNCTURE Reviewed 01/19/2011 12:00 AM COMPREHEN METABOLIC PANEL Reviewed 01/19/2011 12:00 AM LIPID PANEL Reviewed 01/19/2011 12:00 AM ASSAY OF PSA TOTAL Reviewed 02/06/2011 12:00 AM OCCULT BLD FECES [...] g/dLTOTAL BILI 0.50 mg/dLCALCIUM 9.50 mg/dLeGFR 39 History Of Immunizations Not available. History of [...] 2014 8:30AM Hypertension Jun 07 2014 8:30AM USP use of drug Jun 07 2014 8:30AM Cerumen debris on tympanic membrane Dec 04 2014 2:31PM Chronic kidney disease, Stage II (mild) Dec 07 2014 10:49AM Hyperlipidemia Dec 07 2014 10:49AM Hypertension Dec 07 2014 10:49AM USP use of drug Dec 07 2014 10:49AM Payers Insurance Name Company Name Plan Name Plan Number Policy Number Policy Group Number Start Date Medicare Part A Medicare Part A [id number] N/A [facility] [id number] N/A Medicare Part B Medicare Of [place] [id number] N/A History of Encounters Visit Date Visit Type Provider 12/07/2014 Office visit AARON MAJOR 12/04/2014 Office visit AARON MAJOR 06/07/2014 Office visit AARON MAJOR 02/05/2014 Office visit AARON MAJOR 12/04/2013 Office visit AARON MAJOR 05/29/2013 Office visit AARON ROGERS PA 04/25/2013 Office visit AARON ROGERS PA 09/20/2012 Office visit AARON ROGERS PA 06/24/2012 Office visit AARON ROGERS PA 04/18/2012 Office visit AARON ROGERS PA 12/18/2011 Office visit AARON ROGRES PA 11/19/2011 Office visit AARON ROGERS PA 08/24/2011 Office visit AARON MAJOR 05/29/2011 [facility] Ramy Ghosh [...]
--- OUTSIDE RECORDS SUMMARY | 2018-05-01 23:21 | XMS REPORT ---
Author Author AARON ROGERS [facility] Address [address] [place], [place] [id number] Care Team Providers Care Alum Operator Name Role Phone AARON ROGERS PCP Unavailable Allergies and Adverse Reactions Name Reaction Notes iodine PENICILLINS Plan of Treatment Planned Activity Comments Planned Date Planned Time Plan/Goal CBC with Differential 12/02/2016 12:00 AM CMP 12/02/2016 12:00 AM Lipid Blood Profile 12/02/2016 12:00 AM URIC ACID. 12/02/2016 12:00 AM Medications Active Name Start Date [...] oral tablet 05/03/2015 TAKE 1 TABLET ON MON,WED,FRI lisinopril 20 mg oral tablet 05/17/2015 TAKE 1 TABLET DAILY amlodipine 5 mg oral tablet 05/31/2015 TAKE 1 TABLET DAILY citalopram 20 mg oral tablet 05/31/2015 TAKE 1 TABLET DAILY aspirin 81 mg oral tablet,delayed release (DR/EC) 08/05/2015 take 1 tablet (81 mg) by oral route once daily flecainide 50 mg oral tablet 10/07/2015 TAKE 1 TABLET TWICE A DAY Xanax 0.25 mg oral tablet 06/22/2016 Take One by Mouth Twice Daily Pravachol 40 mg oral tablet 07/20/2016 TAKE 1 TABLET PO EVERY Wednesday AND WEDNESDAY FOR HYPERLIPIDEMIA flecainide 50 mg oral tablet 08/20/2016 TAKE 1 TABLET PO TWICE DAILY FOR ARRHYTHMIA Celexa 20 mg oral tablet 08/20/2016 TAKE 1 TABLET PO ONCE DAILY FOR DEPRESSION ZESTRIL 20MG TABLET 08/20/2016 TAKE 1 TABLET BY MOUTH ONCE DAILY FOR HTN ( HOLD IF SBP <100) flecainide 50 mg oral tablet 08/28/2016 TAKE 1 TABLET PO TWICE DAILY FOR ARRHYTHMIA Norvasc 5 mg oral tablet 09/03/2016 TAKE 1 TABLET BY MOUTH ONCE DAILY FOR HTN (HOLD IF SBP <100 PULSE <60) Colcrys 0.6 mg oral tablet 09/09/2016 take 2 tablets (1.2 mg) by oral route initially, then take 1 tab (0.6 mg ) in 1 hr Pravachol 40 mg oral tablet 10/26/2016 TAKE 1 TABLET PO EVERY Wednesday AND WEDNESDAY FOR HYPERLIPIDEMIA fluticasone 50 mcg/actuation nasal spray,suspension 10/26/2016 inhale 1 spray (50 mcg) in each nostril by intranasal route 2 times per day Medrol (Isac) 4 mg oral tablets,dose pack 12/02/2016 12/07/2016 take as directed for 5 days Name Start Date Expiration Date SIG [...] 4 hours as needed Phone order from [facility] to [facility] citalopram 20 mg oral tablet 04/01/2015 TAKE [...] HC BMI BSA BMI Percentile O2 Sat(%) 10/26/2016 11:31:00 AM 120 mmHg 68 mmHg 66 bpm 16 rpm 97.6 F 145 lbs 66 in 23.40 kg/m2 1.75 m2 95 % 04/10/2016 10:43:00 AM 118 mmHg 62 mmHg 70 bpm 16 rpm 97.1 F 144 lbs 66 in 23.242 kg/m 1.744 m 96 % 10/21/2015 3:51:00 PM 135 mmHg [...] 12:00 AM Decadron, Per 1 Mg [facility]# [address]-37 Reviewed 10/21/2015 12:00 AM Rocephin 1 gram [facility]#5192-9344-42 Reviewed 12/25/2015 12:00 AM Removal impacted cerumen using irrigation/lavage, unilateral Reviewed 03/31/2016 12:00 AM DRAINAGE OF SKIN ABSCESS Reviewed 05/19/2016 12:00 AM Removal impacted cerumen using irrigation/lavage, unilateral Reviewed 11/19/2011 12:00 AM ROUTINE VENIPUNCTURE Reviewed 11/19/2011 12:00 AM COMPREHEN METABOLIC PANEL Reviewed 11/19/2011 12:00 AM LIPID PANEL Reviewed 12/18/2011 12:00 AM ROUTINE VENIPUNCTURE Reviewed 12/18/2011 12:00 AM COMPREHEN METABOLIC PANEL Reviewed 04/18/2012 12:00 AM ROUTINE VENIPUNCTURE Reviewed 04/18/2012 12:00 AM COMPREHEN METABOLIC PANEL Reviewed 04/18/2012 12:00 AM LIPID PANEL Reviewed 04/18/2012 12:00 AM COMPLETE CBC W/AUTO DIFF WBC Reviewed 04/18/2012 12:00 AM Prostate Cancer Screening Reviewed 06/24/2012 12:00 AM Flu Injection 3 Years And Above [facility]# [address]-37 C Reviewed 09/20/2012 12:00 AM REMOVE IMPACTED EAR WAX UNI Reviewed 04/25/2013 12:00 AM THER/PROPH/DIAG INJ SC/IM Reviewed 04/25/2013 12:00 AM Decadron, Per 1 Mg [facility]# [address]-86 Reviewed 04/25/2013 12:00 AM Depo-Medrol, Per 80 Mg [facility]#5027-5117-57 Reviewed 12/24/2009 12:00 AM ROUTINE VENIPUNCTURE Reviewed [...] 2014 8:30AM Hypertension Jun 07 2014 8:30AM 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 Jun 07 2014 8:30AM Cerumen debris on tympanic membrane Dec 04 2014 2:31PM Chronic kidney disease, Stage II (mild) Dec 07 2014 10:49AM Hyperlipidemia Dec 07 2014 10:49AM Hypertension Dec 07 2014 10:49AM 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 07 2014 10:49AM [...] 2016 12:08PM Hypertension Dec 02 2016 12:08PM 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 Dec 02 2016 12:08PM Gout Dec 02 2016 12:08PM Prostate cancer screening Dec 02 2016 12:08PM Payers Insurance Name Company Name Plan Name Plan Number Policy Number Policy Group Number Start Date Medicare RHC Medicare RHC [id number] N/A [id number] N/A Medicare Part A Medicare Part A [id number] N/A Medicare Part A Medicare - Lab/Xray [id number] N/A Medicare Part B Medicare Of [place] [id number] N/A History of Encounters Visit Date Visit Type Provider 10/26/2016 Office visit AARON MAJOR 04/10/2016 Office [...] visit AARON MAJOR 06/24/2012 Office visit AARON ROGERS PA 04/18/2012 Office visit AARON ROGERS PA 12/18/2011 Office visit AARON MAJOR 11/19/2011 Office visit AARON MAJOR 08/24/2011 Office visit AARON ROGERS PA 05/29/2011 [facility] Ramy Ghosh MD 05/28/2011 [facility] Ramy Ghosh MD 02/06/2011 Office visit Aaron Rogers PA-C 01/19/2011 Office visit Aaron Rogers PA-C 10/20/2010 Office visit Aaron Rogers PA-C 10/09/2010 Office visit Aaron Rogers PA-C 12/30/2009 Office visit Aaron Rogers PA-C 12/24/2009 Laboratory Aaron Rogers PA-C 09/24/2009 Laboratory Aaron Rogers PA-C 04/22/2009 Office visit AARON MAJOR
--- OUTSIDE RECORDS SUMMARY | 2018-05-01 23:22 | XMS REPORT ---
Author Author [facility] Organization [facility] Address [address] [place] [id number] Care Team Providers Care Splitting Machine Operator Helper Name Role Phone PCP Unavailable Allergies and [...] 4 hours as needed Phone order from [facility] to [facility] lisinopril oral tablet 20 mg 03/12/2014 take [...] A WEEK amlodipine oral tablet 5 mg 12/10/2014 TAKE ONE TABLET BY MOUTH ONCE DAILY pravastatin oral tablet 40 mg 12/18/2014 TAKE ONE TABLET BY MOUTH THREE [...] 2014 8:30AM Hypertension Jun 07 2014 8:30AM 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 07 2014 8:30AM Cerumen debris on tympanic membrane Dec 04 2014 2:31PM Chronic kidney disease, Stage II (mild) Dec 07 2014 10:49AM Hyperlipidemia Dec 07 2014 10:49AM Hypertension Dec 07 2014 10:49AM 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 Dec 07 2014 10:49AM Sebaceous Cyst, upper back Dec 25 2014 4:18PM Payers Insurance Name Company Name Plan Name Plan Number Policy Number Policy Group Number Start Date Medicare Part A Medicare Part A [id number] N/A [facility] [id number] N/A Medicare Part B Medicare Of [place] [id number] N/A History of Encounters Visit Date Visit Type Provider 12/25/2014 Office visit AARON MAJOR 12/07/2014 Office [...] MAJOR 08/24/2011 Office visit AARON MAJOR 05/29/2011 [facility] Ramy Ghosh MD 05/28/2011 [facility] Ramy Ghosh MD 02/06/2011 Office visit Aaron Barahona PA-C 01/19/2011 Office visit Aaron Barahona PA-C 10/20/2010 Office visit Aaron Barahona PA-C 10/09/2010 Office visit Aaron ESTRELLAC 12/30/2009 Office visit Aaron Barahona PA-C 12/24/2009 Laboratory Aaron ESTRELLAC 09/24/2009 Laboratory Aaron ESTRELLAC 04/22/2009 Office visit AARON MAJOR
--- OUTSIDE RECORDS SUMMARY | 2018-05-01 23:23 | XMS REPORT ---
Author Author AARON ROGERS [facility] Address [address] [place], [place] [id number] Care Team Providers Care Systems Support Specialist Name Role Phone AARON ROGERS PCP Unavailable [...] 10/07/2015 TAKE 1 TABLET TWICE A DAY Name Start Date Expiration Date SIG Comments [...] 4 hours as needed Phone order from [facility] to [facility] citalopram 20 mg oral tablet 04/01/2015 TAKE [...] 10/21/2015 12:00 AM Decadron, Per 1 Mg [facility]# [address]-12 Reviewed 10/21/2015 12:00 AM Rocephin 1 gram [facility]#8567-3482-83 Reviewed 12/25/2015 12:00 AM Removal impacted cerumen [...] AM Flu Injection 3 Years And Above [facility]# [address]-50 RHC Reviewed 09/20/2012 12:00 AM REMOVE IMPACTED EAR WAX UNI Reviewed 04/25/2013 12:00 AM THER/PROPH/DIAG INJ SC/IM Reviewed 04/25/2013 12:00 AM Decadron, Per 1 Mg [facility]# [address]-33 Reviewed 04/25/2013 12:00 AM Depo-Medrol, Per 80 Mg [facility]#9448-0107-34 Reviewed 12/24/2009 12:00 AM ROUTINE VENIPUNCTURE Reviewed [...] 11.90 g/dLHCT 35.30 %MCV 96.0 fLMCH 32.40 pgHC 33.70 g/dLRDW CV 13.60 %MPV 9.80 fLPLT [...] 2014 8:30AM Hypertension Jun 07 2014 8:30AM [facility] use of drug Jun 07 2014 8:30AM Cerumen debris on tympanic membrane Dec 04 2014 2:31PM Chronic kidney disease, Stage II (mild) Dec 07 2014 10:49AM Hyperlipidemia Dec 07 2014 10:49AM Hypertension Dec 07 2014 10:49AM 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 2014 10:49AM [...] Bilateral impacted cerumen Dec 25 2015 11:08AM Payers Insurance Name Company Name Plan Name Plan Number Policy Number Policy Group Number Start Date Medicare Part A Medicare RHC [id number] N/A [facility] [id number] N/A Medicare Part A Medicare Part A [id number] N/A Medicare Part A Medicare - Lab/Xray [id number] N/A Medicare Part B Medicare Of [place] [id number] N/A History of Encounters Visit Date Visit Type Provider 12/25/2015 Office visit AARON MAJOR 10/21/2015 Office visit AARON MAJOR 06/13/2015 Office visit AARON MAJOR 12/25/2014 Office visit AARON ROGERS PA 12/07/2014 [...] 08/24/2011 Office visit AARON ROGERS PA 05/29/2011 [facility] Ramy Ghosh MD 05/28/2011 [facility] Ramy Ghosh MD 02/06/2011 Office visit Aaron Rogers PA-C 01/19/2011 Office visit Aaron Rogers PA-C 10/20/2010 Office visit Aaron Rogers PA-C 10/09/2010 Office visit Aaron Rogers PA-C 12/30/2009 Office visit Aaron Rogers PA-C 12/24/2009 Laboratory Aaron Rogers PA-C 09/24/2009 Laboratory Aaron Rogers PA-C 04/22/2009 Office visit AARON MAJOR
--- OUTSIDE RECORDS SUMMARY | 2018-05-01 23:24 | XMS REPORT ---
Author Author AARON ROGERS [facility] Address [address] [place], [place] [id number] Care Team Providers Care In Home Sales Consultant Name Role Phone AARON ROGERS PCP Unavailable [...] by intranasal route 2 times per day Name Start Date Expiration Date SIG Comments [...] 4 hours as needed Phone order from [facility] citalopram 20 mg oral tablet 04/01/2015 TAKE [...] Medrol (Isac) 4 mg oral tablets,dose pack 10/12/2016 10/17/2016 take as directed for 5 days Discontinued Name Start Date Discontinued Date [...] Decadron, Per 1 Mg [facility]# [address]-20 Reviewed 10/21/2015 12:00 AM Rocephin 1 gram [facility]#4980-6293-46 Reviewed 12/25/2015 12:00 AM Removal impacted cerumen [...] 3 Years And Above [facility]# [address]-65 C Reviewed 09/20/2012 12:00 AM REMOVE IMPACTED EAR WAX UNI Reviewed 04/25/2013 12:00 AM THER/PROPH/DIAG INJ SC/IM Reviewed 04/25/2013 12:00 AM Decadron, Per 1 Mg [facility]# [address]-12 Reviewed 04/25/2013 12:00 AM Depo-Medrol, Per 80 Mg [facility]#8321-4151-24 Reviewed 12/24/2009 12:00 AM ROUTINE VENIPUNCTURE Reviewed [...] HGB 11.90 g /dLHCT 35.0 %MCV 93.0 fLH 31.70 pgMCHC 34.0 g/dLRDW SD 43 RDW [...] 2014 8:30AM Hypertension Jun 07 2014 8:30AM [facility] use of drug Jun 07 2014 8:30AM Cerumen debris on tympanic membrane Dec 04 2014 2:31PM Chronic kidney disease, Stage II (mild) Dec 07 2014 10:49AM Hyperlipidemia Dec 07 2014 10:49AM Hypertension Dec 07 2014 10:49AM 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 10:49AM [...] congestion with rhinorrhea Oct 26 2016 11:32AM Payers Insurance Name Company Name Plan Name Plan Number Policy Number Policy Group Number Start Date Medicare RHC Medicare RHC [id number] N/A [id number] N/A Medicare Part A Medicare Part A [id number] N/A Medicare Part A Medicare - Lab/Xray [id number] N/A Medicare Part B Medicare Of [place] [id number] N/A History of Encounters Visit Date Visit [...] visit AARON MAJOR 05/29/2013 Office visit AARON MAOJR 04/25/2013 Office visit AARON MAJOR 09/20/2012 Office visit AARON MAJOR 06/24/2012 Office visit AARON MAJOR 04/18/2012 Office visit AARON MAJOR 12/18/2011 Office visit AARON MAJOR 11/19/2011 Office visit AARON MAJOR 08/24/2011 Office visit AARON MAJOR 05/29/2011 Olena Ghosh MD 05/28/2011 [facility] Ramy Ghosh MD 02/06/2011 Office visit Aaron ESTRELLAC 01/19/2011 Office visit Aaron Rogers PA-C 10/20/2010 Office visit Aaron MAJOR-C 10/09/2010 Office visit Aaron MAJOR-C 12/30/2009 Office visit Aaron MAJOR-C 12/24/2009 Laboratory Aaron MAJOR-C 09/24/2009 Laboratory Aaron Rogers PA-C 04/22/2009 Office visit AARON MAJOR
--- OUTSIDE RECORDS SUMMARY | 2018-05-01 23:25 | XMS REPORT ---
Author Author AARON ROGERS [facility] Address [address] [place] [id number] Care Team Providers Care Fine Arts Model Name Role Phone AARON ROGERS PCP Unavailable [...] TAKE ONE TABLET BY MOUTH ONCE DAILY lisinopril 20 mg oral tablet 05/17/2015 TAKE 1 TABLET DAILY amlodipine 5 mg oral tablet 05/31/2015 TAKE 1 TABLET DAILY aspirin 81 mg oral tablet,delayed release (DR/EC) 08/05/2015 take 1 tablet (81 mg) by oral route once daily flecainide 50 mg oral tablet 10/07/2015 TAKE 1 TABLET TWICE A DAY Pravachol 40 mg oral tablet 07/20/2016 TAKE 1 TABLET PO EVERY Wednesday AND WEDNESDAY FOR HYPERLIPIDEMIA flecainide 50 mg oral tablet 08/20/2016 TAKE 1 TABLET PO TWICE DAILY FOR ARRHYTHMIA Celexa 20 mg oral tablet 08/20/2016 TAKE 1 TABLET PO ONCE DAILY FOR DEPRESSION flecainide 50 mg oral tablet 08/28/2016 TAKE 1 TABLET PO TWICE DAILY FOR ARRHYTHMIA Pravachol 40 mg oral tablet 10/26/2016 TAKE 1 TABLET PO EVERY Wednesday AND WEDNESDAY FOR HYPERLIPIDEMIA alprazolam 0.5 mg oral tablet 12/15/2016 12/10/2017 TAKE ONE-HALF TABLET BY MOUTH TWICE DAILY flecainide 50 mg oral tablet 02/23/2017 TAKE 1 TABLET PO TWICE DAILY FOR ARRHYTHMIA Xanax 0.25 mg oral tablet 03/16/2017 Take One by Mouth Twice Daily fluticasone 50 mcg/actuation nasal spray,suspension 05/06/2017 inhale 1 spray (50 mcg) in each [...] 4 hours as needed Phone order from [facility] to [facility] citalopram 20 mg oral [...] 12/14/2016 take as directed for 5 days Discontinued [...] 10/21/2015 12:00 AM Decadron, Per 1 Mg [facility]# [address]-91 Reviewed 10/21/2015 12:00 AM Rocephin 1 gram [facility]#7557-4438-66 Reviewed 12/25/2015 12:00 AM Removal impacted cerumen [...] AM Flu Injection 3 Years And Above [facility]# [address]-89 RHC Reviewed 09/20/2012 12:00 AM REMOVE IMPACTED EAR WAX UNI Reviewed 04/25/2013 12:00 AM THER/PROPH/DIAG INJ SC/IM Reviewed 04/25/2013 12:00 AM Decadron, Per 1 Mg [facility]# [address]-16 Reviewed 04/25/2013 12:00 AM Depo-Medrol, Per 80 Mg [facility]#7292-1215-63 Reviewed 12/24/2009 12:00 AM ROUTINE VENIPUNCTURE Reviewed [...] 2014 8:30AM Hypertension Jun 07 2014 8:30AM 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 Jun 07 2014 8:30AM Cerumen debris on tympanic membrane Dec 04 2014 2:31PM Chronic kidney disease, Stage II (mild) Dec 07 2014 10:49AM Hyperlipidemia Dec 07 2014 10:49AM Hypertension Dec 07 2014 10:49AM 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 [id number] N/A Medicare Part A Medicare Part A [id number] N/A Medicare Part A Medicare - Lab/Xray [id number] N/A Medicare Part B Medicare Of [place] [id number] N/A History of Encounters Visit Date Visit Type Provider 05/06/2017 Office visit AARON MAJOR 10/26/2016 Office visit AARON MAJOR 04/10/2016 Office visit AARON MAJOR 03/31/2016 Office visit AARON MAJOR 12/25/2015 Office visit AARON MAJOR 10/21/2015 Office visit AARON MAJOR 06/13/2015 Office visit AARON MAJOR 12/25/2014 Office visit AARON MAJOR 12/07/2014 Office visit AARON MAJOR 12/04/2014 Office visit AARON ROGERS PA 06/07/2014 [...] PA 05/29/2011 Hospital Ramy Ghosh MD 05/28/2011 [facility] Ramy Ghosh MD 02/06/2011 Office visit Aaron Rogers PA-C 01/19/2011 Office visit Aaron Rogers PA-C 10/20/2010 Office visit Aaron Rogers PA-C 10/09/2010 Office visit Aaron Rogers PA-C 12/30/2009 Office visit Aaron Rogers PA-C 12/24/2009 Laboratory Aaron Rogers PA-C 09/24/2009 Laboratory Aaron Rogers PA-C 04/22/2009 Office visit AARON MAJOR
--- OUTSIDE RECORDS SUMMARY | 2018-05-01 23:26 | XMS REPORT ---
Author Author AARON ROGERS [facility] Address [address] [place], [place] [id number] Care Team Providers Care Atg Architect Name Role Phone AARON ROGERS PCP Unavailable [...] 4 hours as needed Phone order from 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 8:30AM Cerumen debris on tympanic membrane Dec 04 2014 2:31PM Chronic kidney disease, Stage II (mild) Dec 07 2014 10:49AM Hyperlipidemia Dec 07 2014 10:49AM Hypertension Dec 07 2014 10:49AM detention use of drug Dec 07 2014 10:49AM [...] Date Medicare Part A Medicare Part A [id number] N/A [facility] [id number] N/A Medicare Part B Medicare Of [place] [id number] N/A History of Encounters Visit Date Visit [...] MAJOR 08/24/2011 Office visit AARON MAJOR 05/29/2011 [facility] Ramy Ghosh MD 05/28/2011 [facility] Ramy Ghosh MD 02/06/2011 Office visit Aaron Rogers PA-C 01/19/2011 Office visit Aaron Rogers PA-C 10/20/2010 Office visit Aaron Rogers PA-C 10/09/2010 Office visit Aaron Rogers PA-C 12/30/2009 Office visit Aaron Rogers PA-C 12/24/2009 Laboratory Aaron Rogers PA-C 09/24/2009 Laboratory Aaron Rogers PA-C 04/22/2009 Office visit AARON MAJOR
--- OUTSIDE RECORDS SUMMARY | 2018-05-01 23:27 | XMS REPORT ---
Author Author AARON ROGERS [facility] Address [address] [place] [phone] Care Team Providers Care Arts And Sciences Dean Name Role Phone AARON ROGERS PCP Unavailable [...] 4 hours as needed Phone order from [facility] to [facility] citalopram 20 mg oral tablet 04/01/2015 [...] AM Flu Injection 3 Years And Above [facility]# [address]-94 RHC Reviewed 09/20/2012 12:00 AM REMOVE IMPACTED EAR WAX UNI Reviewed 04/25/2013 12:00 AM THER/PROPH/DIAG INJ SC/IM Reviewed 04/25/2013 12:00 AM Decadron, Per 1 Mg [facility]# [address]-50 Reviewed 04/25/2013 12:00 AM Depo-Medrol, Per 80 Mg [facility]#7268-4931-92 Reviewed 12/24/2009 12:00 AM ROUTINE VENIPUNCTURE Reviewed [...] 2014 8:30AM Hypertension Jun 07 2014 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 07 2014 8:30AM Cerumen debris on tympanic membrane Dec 04 2014 2:31PM Chronic kidney disease, Stage II (mild) Dec 07 2014 10:49AM Hyperlipidemia Dec 07 2014 10:49AM Hypertension Dec 07 2014 10: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 Ramy Ghosh MD 05/28/2011 [facility] Ramy Ghosh MD 02/06/2011 Office visit Aaron Rogers PA-C 01/19/2011 Office visit Aaron MAJOR-C 10/20/2010 Office visit Aaron Rogers PA-C 10/09/2010 Office visit Aaron Rogres PA-C 12/30/2009 Office visit Aaron MAJOR-C 12/24/2009 Laboratory Aaron Rogers PA-C 09/24/2009 Laboratory Aaron Rogers PA-C 04/22/2009 Office visit AARON MAJOR
[2018-05-01 23:28] LABS: BASOPHILS % (AUTO) 0 % (0-10); EOSINOPHILS # (AUTO) 0.1 10^3/uL (0.0-0.3); EOSINOPHILS % (AUTO) 1 % (0-10); HEMATOCRIT 27 % (40-54); HEMOGLOBIN 9.5 G/DL (13.3-17.7); LYMPHOCYTES # (AUTO) 1.2 X 10^3 (1.0-4.0); LYMPHOCYTES % (AUTO) 16 % (12-44); MEAN CORPUSCULAR HEMOGLOBIN 32 PG (25-34); MEAN CORPUSCULAR HGB CONC 35 G/DL (32-36); MEAN CORPUSCULAR VOLUME 93 FL (80-99); MEAN PLATELET VOLUME 8.8 FL (7.4-10.4); MONOCYTES # (AUTO) 1.1 X 10^3 (0.0-1.0); MONOCYTES % (AUTO) 15 % (0-12); NEUTROPHILS % (AUTO) 68 % (42-75); PLATELET COUNT 318 10^3/uL (130-400); RED BLOOD COUNT 2.93 10^6/uL (4.35-5.85); RED CELL DISTRIBUTION WIDTH 13.4 % (10.0-14.5); WHITE BLOOD COUNT 7.4 10^3/uL (4.3-11.0)
--- OUTSIDE RECORDS SUMMARY | 2018-05-01 23:28 | XMS REPORT ---
Author Author AARON ROGERS [facility] Address [address] [place], [place] [id number] Care Team Providers Care Central Supply Technician Supervisor Name Role Phone AARON ROGERS PCP Unavailable [...] A DAY Xanax 0.25 mg oral tablet 02/27/2016 Take One by Mouth Twice Daily Name Start Date Expiration Date SIG Comments [...] 4 hours as needed Phone order from [facility] to [facility] citalopram 20 [...] 10/21/2015 12:00 AM Decadron, Per 1 Mg [facility]# [address]-29 Reviewed 10/21/2015 12:00 AM Rocephin 1 gram [facility]#1810-9116-19 Reviewed 12/25/2015 12:00 AM Removal impacted cerumen [...] Flu Injection 3 Years And Above [facility]# [address]-34 RHC Reviewed 09/20/2012 12:00 AM REMOVE IMPACTED EAR WAX UNI Reviewed 04/25/2013 12:00 AM THER/PROPH/DIAG INJ SC/IM Reviewed 04/25/2013 12:00 AM Decadron, Per 1 Mg [facility]# [address]-75 Reviewed 04/25/2013 12:00 AM Depo-Medrol, Per 80 Mg [facility]#6660-1660-87 Reviewed 12/24/2009 12:00 AM ROUTINE VENIPUNCTURE Reviewed [...] 2014 8:30AM Hypertension Jun 07 2014 8:30AM 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 Jun 07 2014 8:30AM Cerumen debris on tympanic membrane Dec 04 2014 2:31PM Chronic kidney disease, Stage II (mild) Dec 07 2014 10:49AM Hyperlipidemia Dec 07 2014 10:49AM Hypertension Dec 07 2014 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 07 2014 [...] epidermal & sebaceous Mar 31 2016 11:52AM Payers Insurance Name Company Name Plan Name Plan Number Policy Number Policy Group Number Start Date Medicare Part A Medicare [facility] [id number] N/A [facility] [id number] N/A Medicare Part A Medicare Part A [id number] N/A Medicare Part A Medicare - Lab/Xray [id number] N/A Medicare Part B Medicare Of [place] [id number] N/A History of Encounters Visit Date Visit Type Provider 03/31/2016 Office visit AARON MAJOR 12/25/2015 Office visit AARON MAJOR 10/21/2015 Office visit AARON ROGERS PA 06/13/2015 [...] 08/24/2011 Office visit AARON ROGERS PA 05/29/2011 [facility] Ramy Ghosh MD 05/28/2011 [facility] Ramy Ghosh MD 02/06/2011 Office visit Aaron Rogers PA-C 01/19/2011 Office visit Aaron Rogers PA-C 10/20/2010 Office visit Aaron Rogers PA-C 10/09/2010 Office visit Aaron Rogers PA-C 12/30/2009 Office visit Aaron Rogers PA-C 12/24/2009 Laboratory Aaron Rogers PA-C 09/24/2009 Laboratory Aaron Rogers PA-C 04/22/2009 Office visit AARON MAJOR
--- OUTSIDE RECORDS SUMMARY | 2018-05-01 23:29 | XMS REPORT ---
Author Author AARON ROGERS [facility] Address [address] [place] [phone] Care Team Providers Care Sales Operations Lead Name Role Phone AARON ROGERS PCP Allergies [...] FOR ARRHYTHMIA Xanax 0.25 mg oral tablet 05/18/2017 Take One by Mouth Twice Daily fluticasone 50 mcg/actuation nasal spray,suspension 11/05/2017 inhale [...] 4 hours as needed Phone order from [facility] to [facility] citalopram 20 mg oral tablet 04/01/2015 TAKE [...] 10/21/2015 12:00 AM Decadron, Per 1 Mg [facility]# [address]-20 Reviewed 10/21/2015 12:00 AM Rocephin 1 gram [facility]#7303-9136-73 Reviewed 12/25/2015 12:00 AM Removal impacted cerumen [...] AM Flu Injection 3 Years And Above [facility]# [address]-88 RHC Reviewed 09/20/2012 12:00 AM REMOVE IMPACTED EAR WAX UNI Reviewed 04/25/2013 12:00 AM THER/PROPH/DIAG INJ SC/IM Reviewed 04/25/2013 12:00 AM Decadron, Per 1 Mg [facility]# [address]-56 Reviewed 04/25/2013 12:00 AM Depo-Medrol, Per 80 Mg [facility]#6629-1322-54 Reviewed 12/24/2009 12:00 AM ROUTINE VENIPUNCTURE Reviewed [...] 2014 10:49AM Hypertension Dec 07 2014 10:49AM [facility] use of drug Dec 07 2014 10:49AM [...] 12:08PM Hypertension Dec 02 2016 12:08PM 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 N/A Medicare Part A Medicare Part A [id number] N/A Medicare Part A Medicare - Lab/Xray [id number] N/A Medicare Part B Medicare Of [place] [id number] N/A History of Encounters Visit Date Visit Type Provider 11/04/2017 Office visit AARON MAJOR 05/06/2017 Office visit AARON MAJOR 10/26/2016 Office visit AARON ROGERS PA 04/10/2016 [...] PA 05/29/2011 Hospital Ramy Ghosh MD 05/28/2011 [facility] [...]
[2018-05-01] MEDS ORDERED: CEFEPIME INJECTION 2,000 MG in NS (IVPB) 50 ML IV ONE (23:30)
--- OUTSIDE RECORDS SUMMARY | 2018-05-01 23:30 | XMS REPORT ---
Author Author AARON ROGERS [facility] Address [address] [place], [place] [phone] Care Team Providers Care Ship Fastener Name Role Phone AARON ROGERS PCP Unavailable [...] A DAY Xanax 0.25 mg oral tablet 05/01/2016 Take One by Mouth Twice Daily Name [...] 4 hours as needed Phone order from [facility] to [facility] citalopram [...] HC BMI BSA BMI Percentile O2 Sat(%) 04/10/2016 10:43:00 AM 118 mmHg 62 mmHg [...] 10/21/2015 12:00 AM Decadron, Per 1 Mg [facility]# [address]-34 Reviewed 10/21/2015 12:00 AM Rocephin 1 gram [facility]#5015-7513-39 Reviewed 12/25/2015 12:00 AM Removal impacted cerumen [...] AM Flu Injection 3 Years And Above [facility]# [address]-26 RHC Reviewed 09/20/2012 12:00 AM REMOVE IMPACTED EAR WAX UNI Reviewed 04/25/2013 12:00 AM THER/PROPH/DIAG INJ SC/IM Reviewed 04/25/2013 12:00 AM Decadron, Per 1 Mg [facility]# [address]-29 Reviewed 04/25/2013 12:00 AM Depo-Medrol, Per 80 Mg [facility]#3439-7145-58 Reviewed 12/24/2009 12:00 AM ROUTINE VENIPUNCTURE Reviewed [...] 8:30AM Hypertension Jun 07 2014 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 07 2014 8:30AM Cerumen debris on tympanic membrane Dec 04 2014 2:31PM Chronic kidney disease, Stage II (mild) Dec 07 2014 10:49AM Hyperlipidemia Dec 07 2014 10:49AM Hypertension Dec 07 2014 10:49AM [facility] use of drug Dec 07 2014 10:49AM [...] Bilateral impacted cerumen May 18 2016 2:41PM Payers Insurance Name Company Name Plan Name Plan Number Policy Number Policy Group Number Start Date Medicare Part A Medicare [facility] [id number] N/A [id number] N/A Medicare Part A Medicare Part A [id number] N/A Medicare Part A Medicare - Lab/Xray [id number] N/A Medicare Part B Medicare Of [place] [id number] N/A History of Encounters Visit Date Visit Type Provider 04/10/2016 Office visit AARON ROGERS PA 03/31/2016 [...] PA 05/29/2011 Hospital Ramy Ghosh MD 05/28/2011 [facility] Ramy Ghosh MD 02/06/2011 Office visit Aaron Rogers PA-C 01/19/2011 Office visit Aaron Rogers PA-C 10/20/2010 Office visit Aaron Rogers PA-C 10/09/2010 Office visit Aaron Rogers PA-C 12/30/2009 Office visit Aaron Rogers PA-C 12/24/2009 Laboratory Aaron Rogers PA-C 09/24/2009 Laboratory Aaron Rogers PA-C 04/22/2009 Office visit AARON MAJOR
--- OUTSIDE RECORDS SUMMARY | 2018-05-01 23:31 | XMS REPORT ---
Author Author AARON ROGERS [facility] Address [address] [place], [place] [phone] Care Team Providers Care Concrete Crusher Loader Operator Name Role Phone AARON ROGERS PCP [...] 4 hours as needed Phone order from [facility] to [facility] citalopram 20 mg oral tablet [...] 10/21/2015 12:00 AM Decadron, Per 1 Mg [facility]# [address]-16 Reviewed 10/21/2015 12:00 AM Rocephin 1 gram [facility]#5274-2673-15 Reviewed 12/25/2015 12:00 AM Removal impacted cerumen using irrigation/lavage, unilateral Reviewed 03/31/2016 12:00 AM DRAINAGE OF SKIN ABSCESS Reviewed 11/19/2011 12:00 AM ROUTINE VENIPUNCTURE Reviewed [...] AM Flu Injection 3 Years And Above [facility]# [address]-04 RHC Reviewed 09/20/2012 12:00 AM REMOVE IMPACTED EAR WAX UNI Reviewed 04/25/2013 12:00 AM THER/PROPH/DIAG INJ SC/IM Reviewed 04/25/2013 12:00 AM Decadron, Per 1 Mg [facility]# [address]-52 Reviewed 04/25/2013 12:00 AM Depo-Medrol, Per 80 Mg [facility]#5668-7333-70 Reviewed 12/24/2009 12:00 AM ROUTINE VENIPUNCTURE Reviewed [...] 2014 8:30AM Hypertension Jun 07 2014 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 2014 8:30AM Cerumen debris on tympanic membrane Dec 04 2014 2:31PM Chronic kidney disease, Stage II (mild) Dec 07 2014 10:49AM Hyperlipidemia Dec 07 2014 10:49AM Hypertension Dec 07 2014 10:49AM 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 Dec 07 2014 10:49AM [...] & sebaceous Stable Apr 10 2016 10:44AM Payers Insurance Name Company Name Plan Name Plan Number Policy Number Policy Group Number Start Date Medicare Part A Medicare [facility] [id number] N/A [facility] [id number] N/A Medicare Part A Medicare Part A [id number] N/A Medicare Part A Medicare - Lab/Xray [id number] N/A Medicare Part B Medicare Of [place] [id number] N/A History of Encounters Visit Date Visit Type Provider 04/10/2016 Office visit AARON MAJOR 03/31/2016 Office visit ARAON ROGERS PA 12/25/2015 Office visit AARON ROGERS [...] 08/24/2011 Office visit AARON ROGERS PA 05/29/2011 [facility] Ramy Ghosh MD 05/28/2011 [facility] Ramy Ghosh MD 02/06/2011 Office visit Aaron Rogers PA-C 01/19/2011 Office visit Aaron Rogers PA-C 10/20/2010 Office visit Aaron Rogers PA-C 10/09/2010 Office visit Aaron Rogers PA-C 12/30/2009 Office visit Aaron Rogers PA-C 12/24/2009 Laboratory Aaron Rogers PA-C 09/24/2009 Laboratory Aaron Rogers PA-C 04/22/2009 Office visit AARON MAJOR
--- OUTSIDE RECORDS SUMMARY | 2018-05-01 23:33 | XMS REPORT ---
Author Author [facility] Organization [facility] Address [address] [place] [phone] Care Team Providers Care Check Clerk Name Role Phone PCP Unavailable Allergies and [...] 4 hours as needed Phone order from [facility] to [facility] lisinopril oral tablet 20 mg [...] AM COMPLETE CBC W/AUTO DIFF WBC Reviewed 01/19/2011 12:00 AM COMPREHEN METABOLIC PANEL [...] on tympanic membrane Dec 04 2014 2:31PM Payers Insurance Name Company Name Plan Name Plan Number Policy Number Policy Group Number Start Date Medicare Part A Medicare Part A [id number] N/A [facility] [id number] N/A Medicare Part B Medicare Of [place] [id number] N/A History of Encounters Visit Date Visit Type Provider 12/04/2014 Office visit AARON MAJOR 06/07/2014 Office visit AARON MAJOR 02/05/2014 Office visit AARON MAJOR 12/04/2013 Office visit AARON MAJOR 05/29/2013 Office visit AARON MAJOR 04/25/2013 Office visit AARON MAJOR 09/20/2012 Office visit AARON MAJOR 06/24/2012 Office visit AARON MAJOR 04/18/2012 Office visit AARON MAJOR 12/18/2011 Office visit AARON MAJOR 11/19/2011 Office visit AARON MAJOR 08/24/2011 Office visit AARON MAJOR 05/29/2011 [facility] Ramy Ghosh MD 05/28/2011 [facility] Ramy Ghosh MD 02/06/2011 Office visit Aaron Barahona PA-C 01/19/2011 Office visit Aaron ESTRELLAC 10/20/2010 Office visit Aaron ESTRELLAC 10/09/2010 Office visit Aaron ESTRELLAC 12/30/2009 Office visit Aaron Barahona PA-C 12/24/2009 Laboratory Aaron ESTRELLAC 09/24/2009 Laboratory Aaron ESTRELLAC 04/22/2009 Office visit AARON MAJOR
--- OUTSIDE RECORDS SUMMARY | 2018-05-01 23:33 | XMS REPORT | CCD ---
Author Author IMER WILDER Organization Unknown Address [address] [place], [place] [phone] Care Team Providers Care Pouch Maker Name Role Phone REYNA ERANDREA MD Attphys REYNA ER, ANDREA SANCHEZ Prisurg Vital Signs Unknown. Allergies Allergy Code Allergy Type Reaction Status IODINE 5933 Drug allergy (disorder) HIVES Active Procedures Unknown. History of Immunizations Immunization Code Date pneumococcal polysaccharide PPV23 33 05/29/2011 Problems Problem Code Start Date Resolved Date Status ATRIAL FIBRILLATION WITH RVR 01808 05/28/2011 Active Results COMPREHENSIVE METABOLIC PANEL Test Name Code Test Result Test Units Test Date/ Time GLUCOSE 2345-7 117.0000 MG/DL 01/25/2014 08:00 SODIUM 2951-2 134.0000 MEQ/L 01/25/2014 08:00 POTASSIUM 2823-3 5.1000 MEQ/L 01/25/2014 08:00 CHLORIDE 2075-0 103.0000 MEQ/L 01/25/2014 08:00 CO2 2028-9 19.0000 MEQ/L 01/25/2014 08:00 BUN 3094-0 32.0000 MG/DL 01/25/2014 08:00 CREATININE 2160-0 2.2000 MG/DL 01/25/2014 08:00 SGOT/AST 1920-8 18.0000 IU/L 01/25/2014 08:00 SGPT/ALT 1742-6 8.0000 IU/L 01/25/2014 08:00 ALK PHOS 6768-6 108.0000 IU/L 01/25/2014 08:00 TOTAL PROTEIN 2885-2 7.7000 G/DL 01/25/2014 08:00 ALBUMIN 1751-7 4.3000 G/DL 01/25/2014 08:00 TOTAL BILI 1975-2 0.4000 MG/DL 01/25/2014 08:00 CALCIUM 22720-7 9.2000 MG/DL 01/25/2014 08:00 AGE 83.0000 yrs 01/25/2014 08:00 GFR NonAA 29.0000 01/25/2014 08:00 GFR AA 35.0000 01/25/2014 08:00 eGFR 29.0000 mL/min/1.7 01/25/2014 08:00 eGFR AA* 35.0000 mL/min/1.7 01/25/2014 08:00 CBC W/ AUTO DIFF (RFLX MAN DIFF IF IND) Test Name Code Test Result Test Units Test Date/ Time WBC 94697-7 8.8000 TH/CMM 01/25/2014 08:00 RBC 789-8 3.7400 ML/CMM 01/25/2014 08:00 HGB 718-7 12.3000 G/DL 01/25/2014 08:00 HCT 4544-3 36.5000 % 01/25/2014 08:00 MCV 98.0000 FL 01/25/2014 08:00 MCH 32.9000 PG 01/25/2014 08:00 MCHC 33.7000 G/DL 01/25/2014 08:00 RDW SD 48.0000 FL 01/25/2014 08:00 RDW CV 13.5000 % 01/25/2014 08:00 MPV 9.2000 FL 01/25/2014 08:00 PLT 777-3 215.0000 TH/CMM 01/25/2014 08:00 NRBC# 0.0000 TH/CMM 01/25/2014 08:00 NRBC% 0.0000 /100WBC 01/25/2014 08:00 %NEUT 76.5000 % 01/25/2014 08:00 %LYMP 12.9000 % 01/25/2014 08:00 %MONO 9.5000 % 01/25/2014 08:00 %EOS 1.0000 % 01/25/2014 08:00 %BASO 0.1000 % 01/25/2014 08:00 #NEUT 6.6900 TH/CMM 01/25/2014 08:00 #LYMP 1.1300 TH/CMM 01/25/2014 08:00 #MONO 0.8300 TH/CMM 01/25/2014 08:00 #EOS 0.0900 TH/CMM 01/25/2014 08:00 #BASO 0.0100 TH/CMM 01/25/2014 08:00 MANUAL DIFF NOT IND N/A 01/25/2014 08:00 URINALYSIS C&S IF IND Test Name Code Test Result Test Units Test Date/ Time COLOR YELLOW N/A 01/25/2014 09:10 APPEARANCE CLEAR N/A 01/25/2014 09:10 SPEC GRAV 1.020 N/A 01/25/2014 09:10 pH 5.5 N/A 01/25/2014 09:10 PROTEIN TRACE N/A 01/25/2014 09:10 GLUCOSE NEGATIVE N/A 01/25/2014 09:10 KETONE NEGATIVE N/A 01/25/2014 09:10 BILIRUBIN NEGATIVE N/A 01/25/2014 09:10 BLOOD TRACE-LYSED N/A 01/25/2014 09:10 NITRITE NEGATIVE N/A 01/25/2014 09:10 LEUK SCREEN NEGATIVE N/A 01/25/2014 09:10 WBC/HPF RARE N/A 01/25/2014 09:10 RBC/HPF NEGATIVE N/A 01/25/2014 09:10 CASTS/LPF NEGATIVE N/A 01/25/2014 09:10 CRYSTALS TRACE AMORPH N/A 01/25/2014 09:10 MUCOUS THRDS NEGATIVE N/A 01/25/2014 09:10 BACTERIA FEW N/A 01/25/2014 09:10 EPITH CELLS FEW SQUAMOUS N/A 01/25/2014 09:10 TRICHOMONAS NEGATIVE N/A 01/25/2014 09:10 YEAST NEGATIVE N/A 01/25/2014 09:10 CULT SET UP? NO N/A 01/25/2014 09:10 Medications Unknown. Medications Administered Unknown. Encounters Encounter Diagnosis Diagnosis Code Start Date FRACTURE TWO RIBS-CLOSED 48299 01/25/2014 Social History Smoking Status Code Start Date End Date Never smoker [id number] Patient Decision Aids Unknown. Discharge Instructions You were admitted to [facility] on 01/25/2014 with a principle diagnosis of FRACTURE TWO RIBS-CLOSED. You were discharged from [facility] on 01/25/2014. Should you have any questions prior to discharge, please contact a member of your healthcare team. If you have left the hospital and have any questions, please contact your primary care physician. Chief Complaint and Reason For Visit Chief Complaint Date of Onset FALL INJURY Function Status Unknown. Referral/Transition of Care Unknown.
--- OUTSIDE RECORDS SUMMARY | 2018-05-01 23:33 | XMS REPORT | Continuity of Care Document ---
Author Author [facility] Organization [facility] Address Unknown Phone Unavailable Allergies There is no data. Medications There is no data. Problems There is no data. Procedures There is no data. Results There is no data. Encounters ACCT No. Visit Date/Time Discharge Status Pt. Type Provider Facility Loc./Unit Complaint [id number] 04/01/2018 11:03:08 04/01/2018 23:59:59 [facility] Outpatient ALLYSSA ROGERS [id number] 11/04/2017 11:25:48 11/04/2017 23:59:59 ALLYSSA Gonsalez [id number] 05/06/2017 14:08:07 05/06/2017 23:59:59 [facility] Outpatient ALLYSSA ROGERS [id number] 10/26/2016 10:42:01 10/26/2016 23:59:59 CLS Outpatient ALLYSSA ROGERS [id number] 04/10/2016 10:37:38 04/10/2016 23:59:59 CLS Outpatient ALLYSSA ROGERS [id number] 03/31/2016 11:02:26 03/31/2016 23:59:59 CLS Outpatient ALLYSSA ROGERS [id number] 10/21/2015 16:17:01 10/21/2015 23:59:59 [facility] Outpatient ALLYSSA ROGERS [id number] 06/13/2015 11:52:20 06/13/2015 23:59:59 CLS Outpatient ALLYSSA ROGERS [id number] 03/18/2015 21:31:29 03/18/2015 23:59:59 [facility] Outpatient ALLYSSA ROGERS [id number] 12/07/2014 10:21:28 12/07/2014 23:59:59 [facility] Outpatient ALLYSSA ROGERS [id number] 12/04/2014 14:12:32 12/04/2014 23:59:59 [facility] Outpatient ALLYSSA ROGERS [id number] 06/07/2014 09:19:37 06/07/2014 23:59:59 CLS Outpatient ALLYSSA ROGERS [id number] 02/05/2014 12:08:25 02/05/2014 23:59:59 CLS Outpatient ALLYSSA ROGERS [id number] 12/04/2013 12:07:48 12/04/2013 23:59:59 CLS Outpatient ALLYSSA ROGERS
[2018-05-01 23:51] LABS: ALBUMIN 3.2 GM/DL (3.2-4.5); BILIRUBIN,TOTAL 0.2 MG/DL (0.1-1.0); CALCIUM 8.5 MG/DL (8.5-10.1); CREATININE SERUM 2.35 MG/DL (0.60-1.30); POTASSIUM 4.4 MMOL/L (3.6-5.0); TOTAL PROTEIN 6.4 GM/DL (6.4-8.2)
[2018-05-02] MEDS ORDERED: NS IV 500 ML 500 ML IV ONE (00:33)
[2018-05-02] MEDS ORDERED: RT-ALBUTEROL/IPRATROPIUM 3 ML (DUONEB) VIAL INH ONE (01:00)
[2018-05-02 01:47] LABS: BILIRUBIN,URINE NEGATIVE (NEGATIVE); CLARITY,URINE SLIGHTLY CLOUDY; COLOR,URINE YELLOW; GLUCOSE, URINE (UA) NEGATIVE (NEGATIVE); KETONES,URINE NEGATIVE (NEGATIVE); LEUKOCYTE ESTERASE ,URINE NEGATIVE (NEGATIVE); NITRITE,URINE NEGATIVE (NEGATIVE); PH,URINE 5 (5-9); PROTEIN,URINE 2+ (NEGATIVE); UROBILINOGEN,URINE NORMAL (NORMAL)
--- OUTSIDE RECORDS SUMMARY | 2018-05-02 01:47 | XMS REPORT | Continuity of Care Document ---
Author Author [facility] Organization [facility] Address Unknown Phone Unavailable Allergies There is no data. Medications There is no data. Problems There is no data. Procedures There is no data. Results There is no data. Encounters ACCT No. Visit Date/Time Discharge Status Pt. Type Provider Facility Loc./Unit Complaint [id number] 04/01/2018 11:03:08 04/01/2018 23:59:59 [facility] Outpatient ALLYSSA ROGERS [id number] 11/04/2017 11:25:48 11/04/2017 23:59:59 ALLYSSA Gonsalez [id number] 05/06/2017 14:08:07 05/06/2017 23:59:59 [facility] Outpatient ALLYSSA ROGERS [id number] 10/26/2016 10:42:01 10/26/2016 23:59:59 CLS Outpatient ALLYSSA ROGERS [id number] 04/10/2016 10:37:38 04/10/2016 23:59:59 CLS Outpatient ALLYSSA ROGERS [id number] 03/31/2016 11:02:26 03/31/2016 23:59:59 CLS Outpatient ALLYSSA ROGERS [id number] 10/21/2015 16:17:01 10/21/2015 23:59:59 [facility] Outpatient ALLYSSA ROGERS [id number] 06/13/2015 11:52:20 06/13/2015 23:59:59 CLS Outpatient ALLSYSA ROGERS [id number] 03/18/2015 21:31:29 03/18/2015 23:59:59 [facility] Outpatient ALLYSSA ROGERS [id number] 12/07/2014 10:21:28 12/07/2014 23:59:59 [facility] Outpatient ALLYSSA ROGERS [id number] 12/04/2014 14:12:32 12/04/2014 23:59:59 [facility] Outpatient ALLYSSA ROGERS [id number] 06/07/2014 09:19:37 06/07/2014 23:59:59 CLS Outpatient ALLYSSA ROGERS [id number] 02/05/2014 12:08:25 02/05/2014 23:59:59 CLS Outpatient ALLYSSA ROGERS [id number] 12/04/2013 12:07:48 12/04/2013 23:59:59 CLS Outpatient ALLYSSA ROGERS
[2018-05-02 01:59] LABS: BACTERIA,URINE NEGATIVE /HPF
[2018-05-02 02:23] VITALS: BP 140/65
[2018-05-02] MEDS ORDERED: NS W/KCL 20 MEQ/L 1,000 ML IV ONE (03:17)
[2018-05-02] MEDS: NS W/KCL 20 MEQ/L 1,000 ML IV SCH ×4 (03:29→19:57)
[2018-05-02] MEDS ORDERED: ACETAMINOPHEN 500 MG TAB (TYLENOL) PO PRN (03:30)
[2018-05-02] MEDS ORDERED: ALPRAZolam 0.25 MG (XANAX) TAB PO PRN (03:30)
[2018-05-02] MEDS ORDERED: ONDANSETRON 4 MG/2 ML (SDV) Z0FRAN IV PRN (03:30)
[2018-05-02] MEDS ORDERED: RT-ALBUTEROL SULF 2.5 MG/3 ML PRE-MIX VIAL INH PRN ×2 (03:45→17:00)
[2018-05-02] MEDS: AZITHROMYCIN INJECTION 500 MG in NS (IVPB) 250 ML IV SCH (03:51)
[2018-05-02 04:09] VITALS: BP 144/68
[2018-05-02 06:41] LABS: BASOPHILS % (AUTO) 0 % (0-10); EOSINOPHILS # (AUTO) 0.1 10^3/uL (0.0-0.3); EOSINOPHILS % (AUTO) 1 % (0-10); HEMATOCRIT 29 % (40-54); HEMOGLOBIN 10.1 G/DL (13.3-17.7); LYMPHOCYTES # (AUTO) 0.8 X 10^3 (1.0-4.0); LYMPHOCYTES % (AUTO) 11 % (12-44); MEAN CORPUSCULAR HEMOGLOBIN 33 PG (25-34); MEAN CORPUSCULAR HGB CONC 35 G/DL (32-36); MEAN CORPUSCULAR VOLUME 94 FL (80-99); MEAN PLATELET VOLUME 8.9 FL (7.4-10.4); MONOCYTES # (AUTO) 1.1 X 10^3 (0.0-1.0); MONOCYTES % (AUTO) 15 % (0-12); NEUTROPHILS # (AUTO) 5.5 X 10^3 (1.8-7.8); NEUTROPHILS % (AUTO) 73 % (42-75); PLATELET COUNT 307 10^3/uL (130-400); RED BLOOD COUNT 3.09 10^6/uL (4.35-5.85); RED CELL DISTRIBUTION WIDTH 13.1 % (10.0-14.5); WHITE BLOOD COUNT 7.4 10^3/uL (4.3-11.0)
[2018-05-02 06:55] LABS: CALCIUM 8.6 MG/DL (8.5-10.1); CREATININE SERUM 1.97 MG/DL (0.60-1.30); POTASSIUM 4.2 MMOL/L (3.6-5.0)
--- NOTE | 2018-05-02 07:10 | Diagnostic Imaging Report ---
EXAM: CHEST 1 VIEW, AP/PA ONLY INDICATION: Fever. COMPARISON: None. FINDINGS: Perihilar interstitial and airspace opacity in the right upper lung. There is also prominence of the right hilum suspicious for a mass or lymphadenopathy. Cardiomegaly. No definite pleural effusion or pneumothorax. Cardiac pacer. Calcified aorta. IMPRESSION: Right perihilar interstitial and airspace opacity. There is also prominence of the right hilum suspicious for lymphadenopathy or mass. Findings are suspicious for neoplasm versus pneumonitis. Recommend chest CT for further evaluation. Dictated by: Dictated on workstation # [id number]
[2018-05-02] MEDS ORDERED: FLU QUADRIvalent (5+ YOA) 2018-2019 (AFLURIA) 0.5 ML IM ONE (07:30)
[2018-05-02 08:00] VITALS: BP 148/67
[2018-05-02] MEDS: RT-ALBUTEROL SULF 2.5 MG/3 ML PRE-MIX VIAL INH SCH ×2 (08:08→12:00)
[2018-05-02] MEDS: amLODIPine 5 MG (NORVASC) TAB PO SCH (08:50)
[2018-05-02] MEDS: lisINopril 20 MG (PRINIVIL) TABLET PO SCH (08:50)
[2018-05-02] MEDS: FLECAINIDE 100 MG (TAMBOCOR) TAB PO SCH ×2 (08:50→21:43)
[2018-05-02] MEDS: ASPIRIN 81 MG CHEW (CHILDREN'S ASA) PO SCH (08:51)
[2018-05-02] MEDS ORDERED: AMLO5TAB7 PO (09:33)
[2018-05-02] MEDS ORDERED: PRAV40TA2 PO (09:33)
[2018-05-02] MEDS ORDERED: ALPR0.254 PO (09:33)
[2018-05-02] MEDS ORDERED: FLEC50TA PO (09:33)
[2018-05-02] MEDS ORDERED: CITA20TA9 PO (09:33)
[2018-05-02] MEDS ORDERED: ACET-2267 PO (09:33)
[2018-05-02] MEDS ORDERED: LISI-552 PO (09:33)
[2018-05-02] MEDS ORDERED: ASPI-999 PO (09:33)
--- NOTE | 2018-05-02 10:14 | Diagnostic Imaging Report ---
INDICATION: Pneumonia. Comparison made with prior examination 05/01/18. FINDINGS: There is cardiomegaly. There is persistent right perihilar infiltrate suspect for pneumonia. Pacemaker overlies left hemithorax. There is no pleural effusion or pneumothorax. Mediastinum is unremarkable. IMPRESSION: Persistent right perihilar infiltrate suspect for pneumonia. Recommend followup images to ensure resolution as the possibility of underlying mass or adenopathy cannot be excluded. Cardiomegaly. Dictated by: Dictated on workstation # [id number]
[2018-05-02 12:00] VITALS: BP 148/71
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
--- NOTE | 2018-05-02 13:03 | Diagnostic Imaging Report ---
PROCEDURE: CT chest without contrast. TECHNIQUE: Multiple contiguous axial images were obtained through the chest without the use of intravenous contrast. INDICATION: Abnormal chest x-ray in patient with weakness and fatigue. Noncontrasted axial CT images of the thorax are obtained. In correlation with the plain film study of earlier in the day, there is rather extensive airspace disease in the medial aspect of the right upper lobe. There are air bronchograms extending into the area of abnormal density. Findings would be most suggestive of pneumonia. There is no significant pleural or pericardial fluid. There is slight dependent atelectasis in the lung bases, bilaterally. No definite pathologic adenopathy is seen on the noncontrasted images. There is mild atherosclerotic calcification with diffuse thoracic spondylosis. IMPRESSION: Medial right upper lobe airspace disease with associated air bronchograms is most suggestive of pneumonia. Clinical correlation is recommended. If further evaluation is warranted, consideration could be given to right upper lobe bronchoscopy. Consideration could also be given to short-term CT followup to document resolution and exclude other underlying pulmonary pathology. Dictated by: Dictated on workstation # [id number]
--- NOTE | 2018-05-02 15:14 | Pulmonary Consultation ---
History of Present Illness History of Present Illness Date of Consultation 05/02/18 15:08 Time Seen by Provider: 15:08 Date of Admission History of Present Illness 88yo presented to ED from assisted living via EMS secondary to progressive SOB, wheezing, and weakness. Onset has been over the last several days. Upon entering patients room he was ambulating back to bed from bathroom with nursing aid. His daughters were also at bedside. Pt has audible experiatory wheezing with accessory muscle use. Daughters state he becomes very SOB and wheezy with exertion. No prior hx like this. He usually gets around himself and even drives himself around. I am consulted for pulmonary management. Allergies and Home Medications Allergies Coded Allergies: iodine (Verified Allergy, Unknown, 05/01/18) Penicillins (Verified Adverse Reaction, Unknown, 05/01/18) Pt states unknown Home Medications Acetaminophen 500 Mg Tablet, 500 MG PO BID PRN for PAIN-MILD, (Reported) Alprazolam 0.25 Mg Tablet, 0.25 MG PO BID, (Reported) Amlodipine Besylate 5 Mg Tablet, 5 MG PO DAILY, (Reported) HOLD SBP<100 PULSE <60 Aspirin 81 Mg Tab.chew, 81 MG PO DAILY, (Reported) Citalopram Hydrobromide 20 Mg Tablet, 20 MG PO DAILY, (Reported) Flecainide Acetate 50 Mg Tablet, 50 MG PO BID, (Reported) Lisinopril 20 Mg Tablet, 20 MG PO DAILY, (Reported) HOLD IF SBP<100 Pravastatin Sodium 40 Mg Tablet, 40 MG PO MoWeFr, (Reported) Past Ynughhd-Eohcwh-Aqqxzn Hx Past Med/Social Hx: Reviewed Nursing Past Med/Soc Hx Patient Social History Alcohol Use: Denies Use Recreational Drug Use: No Smoking Status: Never a Smoker Recent Foreign Travel: No Contact w/Someone Who Travel: No Recent Infectious Disease Expo: No Recent Hopitalizations: No Immunizations Up To Date Tetanus Booster (TDap): Unknown Seasonal Allergies Seasonal Allergies: No Past Medical History Respiratory: Yes Pneumonia Cardiac: Yes (PACEMAKER) High Cholesterol, Hypertension Neurological: No Genitourinary: Yes (KIDNEY DISEASE) Gastrointestinal: No Musculoskeletal: No Arthritis Endocrine: No HEENT: Yes Hearing Impairment: Hard of Hearing Cancer: No Psychosocial: Yes Anxiety, Depression Integumentary: No Blood Disorders: No Family Medical History Patient reports no known family medical history. Sepsis Event Evaluation Height, Weight, BMI Height: 5'6.00" Weight: 145lbs. 0.0oz. 65.105644yw; 23.4 BMI Method:Stated Exam Exam Vital Signs Date Time Temp Pulse Resp B/P (MAP) Pulse Ox O2 Delivery O2 Flow Rate FiO2 05/02/18 12:00 92 Room Air 05/02/18 12:00 99.4 82 18 148/71 (96) 94 Room Air 05/02/18 08:08 93 Room Air 05/02/18 08:00 98.4 82 18 148/67 (94) 98 Room Air 05/02/18 04:09 97.6 85 19 144/68 (93) 96 Room Air 05/02/18 03:27 86 95 21 05/02/18 03:11 Room Air 05/02/18 02:25 97.3 80 20 131/67 (90) 95 Room Air 05/02/18 02:23 97.3 80 20 140/65 (90) 95 Room Air 05/02/18 01:07 95 Room Air 05/01/18 23:10 98.3 75 19 128/66 (86) I & O 05/02/18 07:00 Intake Total 2400 ml Balance 2400 ml Height & Weight Height: 5'6.00" Weight: 145lbs. 0.0oz. 65.542256rf; 23.4 BMI Method:Stated General Appearance: Other (tachypnea at rest. There is some stridorous noise at inspiration) HEENT: Normal ENT Inspection Neck: Full Range of Motion, Normal Inspection, Non Tender, Supple, Carotid Bruit Respiratory: Chest Non Tender, Lungs Clear, Normal Breath Sounds, No Accessory Muscle Use, No Respiratory Distress Cardiovascular: Regular Rate, Rhythm, No Edema, No Gallop, No JVD, No Murmur, Normal Peripheral Pulses Capillary Refill: Less Than 3 Seconds Gastrointestinal: non tender, soft, no organomegaly Extremity: Normal Capillary Refill, Normal Inspection, Normal Range of Motion, Non Tender, No Calf Tenderness, No Pedal Edema Neurologic/Psychiatric: Alert, Oriented x3, No Motor/Sensory Deficits, Normal Mood/Affect Skin: Normal Color, Warm/Dry Lymphatic: No Adenopathy Results Lab Laboratory Tests 05/01/18 23:13 05/02/18 06:24 Assessment/Plan Assessment/Plan RUL pneumonia with acute bronchitis -Aspiration precautions - daughters state he has not choked on any food that they know of. RN states he is swallowing meds well. -Continue azithromycin, and cefepime -Solumedrol 40 IV Q 6 -SVNs -PT may need a bronchoscopy Respiratory distress and hypoxia especially with little exertion -Pt may need ICU transfer with any worsening with symptoms. -Continue oxygen -SVNS Q4hrs -Check BNP Acute renal failure with metabolic acidosis -Gentle hydration -Lactic acid is normal -Monitor JAQUI LOJA DO May 02, 2018 15:14
[2018-05-02 16:00] VITALS: BP 151/79
[2018-05-02] MEDS: methylPREDNISolone 40 MG/ML (Solu-MEDROL) VIAL IV SCH (18:15)
[2018-05-02 19:50] VITALS: BP 141/66
[2018-05-02] MEDS: RT-ALBUTEROL/IPRATROPIUM 3 ML (DUONEB) VIAL INH SCH ×2 (19:57→22:08)
[2018-05-02] MEDS ORDERED: PRAVASTATIN 20 MG (PRAVACHOL) TAB NON-FORMULARY PO SCH (21:00)
[2018-05-02] MEDS: SIMvastatin 20 MG (ZOCOR) TAB PO SCH (21:43)
[2018-05-02] MEDS: CEFEPIME INJECTION 2,000 MG in NS (IVPB) 50 ML IV SCH (21:43)
[2018-05-03 00:17] VITALS: BP 140/62
[2018-05-03] MEDS: methylPREDNISolone 40 MG/ML (Solu-MEDROL) VIAL IV SCH ×5 (00:36→23:57)
[2018-05-03] MEDS: RT-ALBUTEROL/IPRATROPIUM 3 ML (DUONEB) VIAL INH SCH ×6 (02:16→22:40)
[2018-05-03] MEDS: AZITHROMYCIN INJECTION 500 MG in NS (IVPB) 250 ML IV SCH (02:46)
[2018-05-03 04:21] VITALS: BP 134/72
[2018-05-03 08:00] VITALS: BP 132/78
--- NOTE | 2018-05-03 08:42 | Pulmonary Progress Note ---
Subjective Date Seen by a Provider: May 04, 2018 (Late note for 05/04 today is 05/05. ) Time Seen by a Provider: 10:37 Subjective/Events-last exam PT appears improved. He has no complaints. SOB is improved. Sepsis Event Evaluation Height, Weight, BMI Height: 5'6.00" Weight: 145lbs. 0.0oz. 65.975018qz; 23.4 BMI Method:Stated Focused Exam Lactate Level 05/01/18 23:13: Lactic Acid Level 0.97 Exam Exam Vital Signs Date Time Temp Pulse Resp B/P (MAP) Pulse Ox O2 Delivery O2 Flow Rate FiO2 05/03/18 08:07 95 Nasal Cannula 2.00 05/03/18 08:00 98.8 90 16 132/78 (96) 97 Room Air 05/03/18 08:00 Nasal Cannula 2.00 05/03/18 04:21 97.8 83 19 134/72 (92) 97 Room Air 05/03/18 02:17 95 Nasal Cannula 2.00 05/03/18 00:17 97.6 92 22 140/62 (88) 96 Room Air 05/02/18 22:08 94 Nasal Cannula 2.00 05/02/18 20:20 99.2 05/02/18 20:00 Nasal Cannula 2.00 05/02/18 19:53 100.7 05/02/18 19:50 100.7 86 20 141/66 (91) 94 Room Air 05/02/18 16:00 100.1 98 20 151/79 (103) 94 Room Air 05/02/18 15:45 91 Room Air 05/02/18 12:00 92 Room Air 05/02/18 12:00 99.4 82 18 148/71 (96) 94 Room Air I & O 05/03/18 07:00 Intake Total 1640 ml Output Total 850 ml Balance 790 ml Height & Weight Height: 5'6.00" Weight: 145lbs. 0.0oz. 65.185140kl; 23.4 BMI Method:Stated General Appearance: No Apparent Distress, Moderate Distress HEENT: Normal ENT Inspection Neck: Full Range of Motion, Normal Inspection, Non Tender, Supple, Carotid Bruit Respiratory: Chest Non Tender, Lungs Clear, Normal Breath Sounds, No Accessory Muscle Use, No Respiratory Distress Cardiovascular: Regular Rate, Rhythm, No Edema, No Gallop, No JVD, No Murmur, Normal Peripheral Pulses Capillary Refill: Less Than 3 Seconds Gastrointestinal: non tender, soft, no organomegaly Extremity: Normal Capillary Refill, Normal Inspection, Normal Range of Motion, Non Tender, No Calf Tenderness, No Pedal Edema Neurologic/Psychiatric: Alert, Oriented x3, No Motor/Sensory Deficits, Normal Mood/Affect Skin: Normal Color, Warm/Dry Lymphatic: No Adenopathy Results Lab Laboratory Tests 05/01/18 23:13 05/02/18 06:24 Assessment/Plan Assessment/Plan RUL pneumonia with acute bronchitis -Aspiration precautions - daughters state he has not choked on any food that they know of. RN states he is swallowing meds well. -Continue azithromycin, and cefepime -Solumedrol 40 IV Q 6 -SVNs -PT may need a bronchoscopy Respiratory distress and hypoxia especially with little exertion -Continue oxygen -SVNS Q4hrs -Check BNP Acute renal failure -Monitor JAQUI LOJA DO May 03, 2018 08:42
--- NOTE | 2018-05-03 08:49 | Diagnostic Imaging Report ---
INDICATION: Pneumonia. Comparison made with prior examination from 05/02/2018. FINDINGS: There is cardiomegaly. There is a persistent right upper lobe pneumonia. There is no pleural effusion or pneumothorax. The mediastinum is unremarkable. Pacemaker overlies the left hemithorax. IMPRESSION: Persistent right upper lobe pneumonia. Cardiomegaly. Dictated by: Dictated on workstation # [id number]
[2018-05-03] MEDS: ASPIRIN 81 MG CHEW (CHILDREN'S ASA) PO SCH (09:14)
[2018-05-03] MEDS: FLECAINIDE 100 MG (TAMBOCOR) TAB PO SCH ×2 (09:15→20:11)
[2018-05-03] MEDS: lisINopril 20 MG (PRINIVIL) TABLET PO SCH (09:15)
[2018-05-03] MEDS: AZITHROMYCIN 250 MG TAB (ZITHROMAX) PO SCH (09:15)
[2018-05-03] MEDS: amLODIPine 5 MG (NORVASC) TAB PO SCH (09:15)
[2018-05-03] MEDS: NS W/KCL 20 MEQ/L 1,000 ML IV SCH (10:38)
[2018-05-03 12:00] VITALS: BP 148/72
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
[2018-05-03 15:48] VITALS: BP 147/75
[2018-05-03 19:33] VITALS: BP 165/76
[2018-05-03] MEDS: CEFEPIME INJECTION 2,000 MG in NS (IVPB) 50 ML IV SCH (20:12)
[2018-05-03] MEDS: SIMvastatin 20 MG (ZOCOR) TAB PO SCH (20:12)
[2018-05-04 00:03] VITALS: BP 148/75
[2018-05-04] MEDS: NS W/KCL 20 MEQ/L 1,000 ML IV SCH ×2 (00:48→14:03)
[2018-05-04] MEDS: RT-ALBUTEROL/IPRATROPIUM 3 ML (DUONEB) VIAL INH SCH ×6 (03:12→21:50)
[2018-05-04 04:00] VITALS: BP 148/79
[2018-05-04] MEDS: methylPREDNISolone 40 MG/ML (Solu-MEDROL) VIAL IV SCH ×4 (05:54→23:54)
[2018-05-04 08:00] VITALS: BP 147/69
[2018-05-04] MEDS: FLECAINIDE 100 MG (TAMBOCOR) TAB PO SCH ×2 (08:53→21:11)
[2018-05-04] MEDS: amLODIPine 5 MG (NORVASC) TAB PO SCH (08:53)
[2018-05-04] MEDS: ASPIRIN 81 MG CHEW (CHILDREN'S ASA) PO SCH (08:53)
[2018-05-04] MEDS: lisINopril 20 MG (PRINIVIL) TABLET PO SCH (08:53)
[2018-05-04] MEDS: AZITHROMYCIN 250 MG TAB (ZITHROMAX) PO SCH (08:53)
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
[2018-05-04 12:00] VITALS: BP 130/62
[2018-05-04] MEDS ORDERED: ACETAMINOPHEN 500 MG TAB (TYLENOL) PO PRN (12:30)
[2018-05-04] MEDS: RT-BUDESONIDE NEBS 0.5 MG/2ML (PULMICORT) AMP INH SCH (13:26)
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
--- NOTE | 2018-05-04 15:44 | Physical Therapy Evaluation ---
PT Evaluation-General Medical Diagnosis Admission Date May 02, 2018 at 01:00 Medical Diagnosis: pneumonia Onset Date: May 01, 2018 Therapy Diagnosis Therapy Diagnosis: impaired mobility, strength, endurance Height/Weight Height (Feet): 5 Height (Inches): 6.00 Weight (Pounds): 145 Weight (Ounces): 0.0 Precautions Precautions/Isolations: Standard Precautions Referral Physician: Andres Reason for Referral: Evaluation/Treatment Medical History Pertinent Medical History: Arthritis, HTN Additional Medical History high cholesterol, [place], anxiety, depression, dementia Current History Patient went to ER via ambulance with progressive weakness and SOB -> pneumonia Reviewed History: Yes Social History Home: Assisted Living ([facility]) Current Living Status: Spouse (has Alzheimers) Entry Into Home: Level Entry Prior/Core FIM Prior Level of Function Functional [place] Measure 0=Not Assessed/NA 4=Minimal Assistance 1=Total Assistance 5=Supervision or Setup 2=Maximal Assistance 6=Modified [place] 3=Moderate Assistance 7=Complete [place] Bed Mobility: 7 Transfers (B,C,W/C) (FIM): 7 Gait: 7 PT Evaluation-Current Subjective Patient in recliner pre tx, agrees to PT, no complaints of pain at rest. Pt/Family Goals "to be able to go home" Objective Patient Orientation: Person, Confused Attachments: Oxygen, IV ROM/Strength ROM Lower Extremities WNL Strength Lower Extremities 4/5 gross bilateral lower extremities Neuromuscular (Tone, Coordination, Reflexes) NT Sensory Vision: Wears Glasses Hearing: Impaired Hand Dominance: Right Sensation Right Lower Extremit: Intact Sensation Left Lower Extremity: Intact Transfers Functional [place] Measure 0=Not Assessed/NA 4=Minimal Assistance 1=Total Assistance 5=Supervision or Setup 2=Maximal Assistance 6=Modified [place] 3=Moderate Assistance 7=Complete [place] Transfers (B, C, W/C) (FIM): 4 Sit to/from Stand: 4 bed t/f WC(FIM only if WC use): 4 CGA, patient needs cues for safety and hand placement Gait Mode of Locomotion: Walk Anticipated Mode of Locomotion: Walk Gait (FIM): 2 Distance: 100' Gait Level of Assist: 4 Gait Persons Needed: 1 Gait Assistive Device: FWW Comments/Gait Description Patient needs some assist guiding walker and cues to stay close to walker Balance Sitting Static: Normal Sitting Dynamic: Normal Standing Static: Fair Standing Dynamic: Fair Treatment seated exercises x10 (AP, LAQ) Assessment/Needs Patient has impaired mobility, strength, endurance. He is confused and is a fall risk. Rehab Potential: Fair PT Short Term Goals Short Term Goals Time Frame: May 11, 2018 Transfers (B,C,W/C) (FIM): 5 Gait (FIM): 5 Gait Distance Comment: 150' Gait Level of Assist: 5 Gait Assistive Device: FWW PT Plan Problem List Problem List: Activity Tolerance, Functional Strength, Safety, Balance, Gait, Transfer, Bed Mobility, ROM Treatment/Plan Treatment Plan: Continue Plan of Care Treatment Plan: Bed Mobility, Education, Functional Activity [place], Functional Strength, Gait, Safety, Therapeutic Exercise, Transfers Treatment Duration: May 11, 2018 Frequency: 6 times per week Estimated Hrs Per Day: .25 hour per day (15-30') Patient and/or Family Agrees t: Yes Safety Risks/Education Patient Education: Gait Training, Transfer Techniques, Correct Positioning, Safety Issues Teaching Recipient: Patient Teaching Methods: Demonstration, Discussion Response to Teaching: Reinforcement Needed Discharge Recommendations Plan Patient will perform bed mobility and transfer training, balance and endurance training, functional strengthening, stair training, gait training, and education , to improve functional mobility and independence at home. Therapy D/C Recommendations: Assisted Living, Home w/ Family Support, Senior Care (TCU/[facility]) Time/GCodes Time In: 1515 Time Out: 1532 Total Billed Treatment Time: 17 Total Billed Treatment 1 visit JOSIAS 17' ANTOINE MICHEL PT May 04, 2018 15:44
[2018-05-04 16:20] VITALS: BP 145/79
[2018-05-04 20:30] VITALS: BP 138/79
[2018-05-04] MEDS ORDERED: ATORVASTATIN 10 MG (LIPITOR) TABLET PO SCH (21:00)
[2018-05-04] MEDS: ALPRAZolam 0.25 MG (XANAX) TAB PO SCH (21:11)
[2018-05-04] MEDS: CEFEPIME INJECTION 2,000 MG in NS (IVPB) 50 ML IV SCH (21:11)
[2018-05-05] VITALS (7 sets, daily range): BP systolic 130–157; BP diastolic 74–91
[2018-05-05] MEDS: RT-ALBUTEROL/IPRATROPIUM 3 ML (DUONEB) VIAL INH SCH ×6 (02:37→23:01)
[2018-05-05] MEDS: methylPREDNISolone 40 MG/ML (Solu-MEDROL) VIAL IV SCH (05:28)
[2018-05-05 06:30] LABS: BASOPHILS % (AUTO) 0 % (0-10); EOSINOPHILS % (AUTO) 0 % (0-10); HEMATOCRIT 29 % (40-54); HEMOGLOBIN 9.6 G/DL (13.3-17.7); LYMPHOCYTES # (AUTO) 0.3 X 10^3 (1.0-4.0); LYMPHOCYTES % (AUTO) 3 % (12-44); MEAN CORPUSCULAR HEMOGLOBIN 32 PG (25-34); MEAN CORPUSCULAR HGB CONC 33 G/DL (32-36); MEAN CORPUSCULAR VOLUME 95 FL (80-99); MEAN PLATELET VOLUME 8.9 FL (7.4-10.4); MONOCYTES # (AUTO) 0.4 X 10^3 (0.0-1.0); MONOCYTES % (AUTO) 3 % (0-12); NEUTROPHILS # (AUTO) 11.9 X 10^3 (1.8-7.8); NEUTROPHILS % (AUTO) 94 % (42-75); PLATELET COUNT 442 10^3/uL (130-400); RED BLOOD COUNT 3.03 10^6/uL (4.35-5.85); RED CELL DISTRIBUTION WIDTH 14.4 % (10.0-14.5); WHITE BLOOD COUNT 12.6 10^3/uL (4.3-11.0)
[2018-05-05 06:46] LABS: ANISOCYTOSIS SLIGHT; BAND NEUTROPHILS 1 %; BASOPHILS % (MANUAL) 0 %; EOSINOPHILS % (MANUAL) 0 %; HYPOCHROMASIA SLIGHT; LYMPHOCYTES % (MANUAL) 1 %; MONOCYTES % (MANUAL) 1 %; NEUTROPHILS % (MANUAL) 97 %; POLYCHROMASIA SLIGHT; ROULEAUX SLIGHT
[2018-05-05 06:56] LABS: ALBUMIN 3.5 GM/DL (3.2-4.5); BILIRUBIN,TOTAL 0.2 MG/DL (0.1-1.0); CALCIUM 9.3 MG/DL (8.5-10.1); CREATININE SERUM 1.71 MG/DL (0.60-1.30); POTASSIUM 5.3 MMOL/L (3.6-5.0); TOTAL PROTEIN 6.7 GM/DL (6.4-8.2)
[2018-05-05] MEDS ORDERED: ASPIRIN 81 MG CHEW (CHILDREN'S ASA) PO SCH (09:00)
[2018-05-05] MEDS: RT-BUDESONIDE NEBS 0.5 MG/2ML (PULMICORT) AMP INH SCH (09:11)
[2018-05-05] MEDS: FLECAINIDE 100 MG (TAMBOCOR) TAB PO SCH ×2 (09:15→20:43)
[2018-05-05] MEDS: amLODIPine 5 MG (NORVASC) TAB PO SCH (09:16)
[2018-05-05] MEDS: lisINopril 20 MG (PRINIVIL) TABLET PO SCH (09:16)
[2018-05-05] MEDS: ALPRAZolam 0.25 MG (XANAX) TAB PO SCH ×2 (09:16→20:43)
[2018-05-05] MEDS: AZITHROMYCIN 250 MG TAB (ZITHROMAX) PO SCH (09:16)
[2018-05-05] MEDS: ASPIRIN 81 MG CHEW (CHILDREN'S ASA) PO SCH (09:16)
[2018-05-05] MEDS ORDERED: FUROSEMIDE 40 MG/4 ML INJ (LASIX) IVP NR (10:00)
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
--- NOTE | 2018-05-05 10:44 | Pulmonary Progress Note ---
Sepsis Event Evaluation Height, Weight, BMI Height: 5'6.00" Weight: 145lbs. 0.0oz. 65.854461da; 23.4 BMI Method:Stated Exam Exam Vital Signs Date Time Temp Pulse Resp B/P (MAP) Pulse Ox O2 Delivery O2 Flow Rate FiO2 05/05/18 09:50 92 05/05/18 09:12 92 Room Air 05/05/18 08:27 98.0 104 22 150/80 (103) 96 Nasal Cannula 1.00 05/05/18 08:00 93 Nasal Cannula 1.00 05/05/18 04:00 97.6 103 18 157/91 (113) 93 Nasal Cannula 1.00 05/05/18 02:37 94 Nasal Cannula 1.00 05/05/18 00:46 97.8 95 20 153/80 (104) 95 Room Air 05/04/18 21:50 92 Room Air 05/04/18 20:30 97.3 96 16 138/79 (98) 93 Room Air 05/04/18 20:20 96 Nasal Cannula 1.00 05/04/18 18:30 Nasal Cannula 1.00 05/04/18 16:20 98.2 99 16 145/79 (101) 96 Nasal Cannula 1.00 05/04/18 14:35 Nasal Cannula 2.00 05/04/18 12:00 98.1 84 16 130/62 (84) 95 Nasal Cannula 1.00 I & O 05/05/18 07:00 Intake Total 2325 ml Output Total 2050 ml Balance 275 ml Height & Weight Height: 5'6.00" Weight: 145lbs. 0.0oz. 65.734894sd; 23.4 BMI Method:Stated General Appearance: No Apparent Distress, Moderate Distress HEENT: Normal ENT Inspection Neck: Full Range of Motion, Normal Inspection, Non Tender, Supple, Carotid Bruit Respiratory: Chest Non Tender, Lungs Clear, Normal Breath Sounds, No Accessory Muscle Use, No Respiratory Distress Cardiovascular: Regular Rate, Rhythm, No Edema, No Gallop, No JVD, No Murmur, Normal Peripheral Pulses Capillary Refill: Less Than 3 Seconds Gastrointestinal: non tender, soft, no organomegaly Extremity: Normal Capillary Refill, Normal Inspection, Normal Range of Motion, Non Tender, No Calf Tenderness, No Pedal Edema Neurologic/Psychiatric: Alert, Oriented x3, No Motor/Sensory Deficits, Normal Mood/Affect Skin: Normal Color, Warm/Dry Lymphatic: No Adenopathy Results Lab Laboratory Tests 05/05/18 06:10 Assessment/Plan Assessment/Plan RUL pneumonia with acute bronchitis -Repeat CXR -Aspiration precautions - daughters state he has not choked on any food that they know of. RN states he is swallowing meds well. -Continue azithromycin, and cefepime -Solumedrol 40 IV Q 6 -SVNs -Will continue to follow pt even after discharge to ensure CXR improves. Order placed for RN to make him an appt with me. Metabolic acidosis -repeat LA Acute renal failure -Monitor JAQUI LOJA DO May 05, 2018 10:44
--- NOTE | 2018-05-05 10:47 | Physical Therapy Daily Note ---
PT Daily Note-Current Subjective Patient is in recliner and alert. Continues to be slightly confused. Pain Numeric Pain Scale: 0-No Pain Location: No Pain Reported Mental Status Patient Orientation: Confused Transfers Functional [place] Measure 0=Not Assessed/NA 4=Minimal Assistance 1=Total Assistance 5=Supervision or Setup 2=Maximal Assistance 6=Modified [place] 3=Moderate Assistance 7=Complete IndependenceIRFPAI Quality Coding Scale 6 Independent with activity with or without an assistive device 5 Patient requires set up or clean up by helper. Patient completes activity by themselves 4 Supervision or touching assist (CGA). [place] provide cues , steadying assist 3 The helper provides less than half the effort to complete the activity 2 The helper provides more than half the effort to complete the activity 1 Dependent. The helper does all the effort to complete an activity 7 Patient refused to complete or attempt activity 9 The patient did not perform the activity before the current illness or injury 88 Not attempted due to Medical conditions or safety concerns Transfers (B, C, W/C) (FIM): 5 Scootin Sit to/from Stand: 5 Gait Training Gait (FIM): 5 Distance (FIM): 3=150 ft Distance: 400' Gait Level of Assist: 5 Gait Assistive Device: FWW safe and functional Assessment Patient tolerated treatment well and is up in recliner with chair alarm activated for safety. PT Short Term Goals Short Term Goals Time Frame: May 11, 2018 Transfers (B,C,W/C) (FIM): 5 Gait (FIM): 5 Gait Distance Comment: 150' Gait Level of Assist: 5 Gait Assistive Device: FWW PT Plan Treatment/Plan Treatment Plan: Continue Plan of Care Treatment Plan: Bed Mobility, Education, Functional Activity [place], Functional Strength, Gait, Safety, Therapeutic Exercise, Transfers Treatment Duration: May 11, 2018 Frequency: 6 times per week Estimated Hrs Per Day: .25 hour per day (15-30') Patient and/or Family Agrees t: Yes Time/GCodes Time In: 1006 Time Out: 1022 Total Billed Treatment Time: 16 Total Billed Treatment 1 visit FA 16 min CRISTIANO MORA PT May 05, 2018 10:47
--- NOTE | 2018-05-05 14:56 | Diagnostic Imaging Report ---
Indication: Pneumonia. Comparison made with prior examination of 05/03/2018. Findings: Cardiomegaly. There is persistent right perihilar infiltrate. There appear to be small bowel pleural effusions. No pneumothorax. Mediastinum is unremarkable. Pacemaker overlies the left hemithorax. Impression: Persistent right perihilar infiltrate. Cardiomegaly and small bilateral pleural effusions. Dictated by: Dictated on workstation # [id number]
--- NOTE | 2018-05-05 15:47 | Occupational Ther Daily Note ---
OT Current Status-Daily Note Subjective Pt seen in room, up in recliner, agreeable to OT. No pain mentioned Appearance Alert, cooperative Mental Status/Objective Functional [place] Measure 0=Not Assessed/NA 4=Minimal Assistance 1=Total Assistance 5=Supervision or Setup 2=Maximal Assistance 6=Modified [place] 3=Moderate Assistance 7=Complete [place] Other Treatment Pt education on several different bilat UE exercises with yellow theraband ( gentle resistance). He had some difficulty following instructions and needed occasional physical cues to do the exercises correctly. To strengthen arms and increase activity tolerance after hospitalization. He tended to ramble verbally and needed cues to stay on track. pt left up in recliner, all needs met. Education OT Patient Education: Home exercise program, Progress toward Goal/Update tx plan, Purpose of tx/functional activities Teaching Recipient: Patient Teaching Methods: Demonstration, Discussion Response to Teaching: Verbalize Understanding, Return Demonstration, Reinforcement Needed OT Short Term Goals Short Term Goals Transfers (B,C,W/C) (FIM): 5 1=Demonstrate adherence to instructed precautions during ADL tasks. 2=Patient will verbalize/demonstrate understanding of assistive devices/ modifications for ADL. 3=Patient will improve strength/tolerance for activity to enable patient to perform ADL's. OT Manager Game Goals Manager Game Goals Time Frame: May 11, 2018 Eating (FIM): 6 Grooming(FIM): 6 Bathing(FIM): 5 Upper Body Dressing(FIM): 5 Lower Body Dressing(FIM): 5 Toileting(FIM): 6 Toilet/Commode Transfer(FIM): 6 Shower Transfer(FIM): 5 Additional Goals: 1-Demonstrate ADL Tasks, 2-Verbalize Understanding, 3- ImproveStrength/[place]orina 1=Demonstrate adherence to instructed precautions during ADL tasks. 2=Patient will verbalize/demonstrate understanding of assistive devices/ modifications for ADL. 3=Patient will improve strength/tolerance for activity to enable patient to perform ADL's. OT Education/Plan Problem List/Assessment Pt would benefit from skilled OT to increase his independence in basic self care to allow him to safely return home to [place] Discharge Recommendations Plan/Recommendations: Continue POC Treatment Plan/Plan of Care Patient would benefit from OT for education, treatment and training to promote independence in ADL's, mobility, safety and/or upper extremity function for ADL' s. Plan of Care: ADL Retraining, Functional Mobility, UE Funct Exercise/Act, UE Neuromus Re-Ed/Coord Treatment Duration: May 11, 2018 Frequency: 5 times per week Estimated Hrs Per Day: .25 hour per day Agreement: Yes Rehab Potential: Fair Time/GCodes Start Time: 15:20 Stop Time: 15:35 Total Time Billed (hr/min): 15 Billed Treatment Time visit, 15 minutes exercise ANUPAMA ALVARADO OT May 05, 2018 15:47
[2018-05-05] MEDS: CEFEPIME INJECTION 2,000 MG in NS (IVPB) 50 ML IV SCH (20:42)
[2018-05-05] MEDS ORDERED: methylPREDNISolone 40 MG/ML (Solu-MEDROL) VIAL IV SCH (21:00)
[2018-05-06 00:04] VITALS: BP 140/69
[2018-05-06] MEDS: RT-ALBUTEROL/IPRATROPIUM 3 ML (DUONEB) VIAL INH SCH ×3 (01:46→12:00)
[2018-05-06 04:04] VITALS: BP 144/72
[2018-05-06 08:00] VITALS: BP 150/84
--- NOTE | 2018-05-06 08:45 | Physical Therapy Daily Note ---
PT Daily Note-Current Subjective Patient agrees to PT. No c/o. Pain Numeric Pain Scale: 0-No Pain Location: No Pain Reported Mental Status Patient Orientation: Person, Time, Situation Transfers Functional [place] Measure 0=Not Assessed/NA 4=Minimal Assistance 1=Total Assistance 5=Supervision or Setup 2=Maximal Assistance 6=Modified [place] 3=Moderate Assistance 7=Complete IndependenceIRFPAI Quality Coding Scale 6 Independent with activity with or without an assistive device 5 Patient requires set up or clean up by helper. Patient completes activity by themselves 4 Supervision or touching assist (CGA). [place] provide cues , steadying assist 3 The helper provides less than half the effort to complete the activity 2 The helper provides more than half the effort to complete the activity 1 Dependent. The helper does all the effort to complete an activity 7 Patient refused to complete or attempt activity 9 The patient did not perform the activity before the current illness or injury 88 Not attempted due to Medical conditions or safety concerns Transfers (B, C, W/C) (FIM): 6 Scootin Rollin Supine to/from Sit: 6 Sit to/from Stand: 6 Bed to/from Chair: 6 Gait Training Gait (FIM): 6 Distance (FIM): 3=150 ft Distance: 400' Gait Level of Assist: 6 Gait Assistive Device: FWW safe and functional Exercises Supine Ex: Ankle pumps, Quad Set, Heel Slides, Straight leg raise Supine Reps: 15 Seated Therapy Exercises: Ankle pumps, Long arc quads Seated Reps: 15 Assessment Patient tolerated treatment well and will dismiss to AL on this date. PT Short Term Goals Short Term Goals Time Frame: May 11, 2018 Transfers (B,C,W/C) (FIM): 5 Gait (FIM): 5 Gait Distance Comment: 150' Gait Level of Assist: 5 Gait Assistive Device: FWW PT Plan Treatment/Plan Treatment Plan: Discontinue PT, goals met Treatment Plan: Bed Mobility, Education, Functional Activity [place], Functional Strength, Gait, Safety, Therapeutic Exercise, Transfers Treatment Duration: May 11, 2018 Frequency: 6 times per week Estimated Hrs Per Day: .25 hour per day (15-30') Patient and/or Family Agrees t: Yes Time/GCodes Time In: 811 Time Out: 834 Total Billed Treatment Time: 23 Total Billed Treatment 1 visit FA 15 min EX 8 min CRISTIANO MORA PT May 06, 2018 08:45
--- NOTE | 2018-05-06 08:47 | Pulmonary Progress Note ---
Subjective Time Seen by a Provider: 10:04 Subjective/Events-last exam PT appears improved. Family at bedside also state he is improving. Sepsis Event Evaluation Height, Weight, BMI Height: 5'6.00" Weight: 145lbs. 0.0oz. 65.193327ny; 23.4 BMI Method:Stated Focused Exam Lactate Level 05/05/18 11:02: Lactic Acid Level 0.65 Exam Exam Vital Signs Date Time Temp Pulse Resp B/P (MAP) Pulse Ox O2 Delivery O2 Flow Rate FiO2 05/06/18 06:53 92 Room Air 05/06/18 04:04 97.9 96 17 144/72 (96) 93 Room Air 05/06/18 01:47 91 Room Air 05/06/18 00:04 97.6 100 19 140/69 (92) 94 Room Air 05/05/18 20:00 Room Air 05/05/18 19:25 95.8 100 20 135/75 (95) 95 Room Air 05/05/18 16:30 97.7 100 16 139/78 (98) 95 Room Air 05/05/18 14:49 98.4 101 18 146/79 (101) 96 Room Air 05/05/18 14:13 93 Room Air 05/05/18 12:00 97.2 102 24 139/74 (95) 94 Nasal Cannula 1.00 05/05/18 09:50 92 05/05/18 09:12 92 Room Air I & O 05/06/18 07:00 Intake Total 2820 ml Output Total 2525 ml Balance 295 ml Height & Weight Height: 5'6.00" Weight: 145lbs. 0.0oz. 65.840246sz; 23.4 BMI Method:Stated General Appearance: No Apparent Distress, WD/WN, Chronically ill HEENT: Normal ENT Inspection Neck: Full Range of Motion, Normal Inspection, Non Tender, Supple Respiratory: Chest Non Tender, No Accessory Muscle Use, No Respiratory Distress , Decreased Breath Sounds, Wheezing Cardiovascular: Regular Rate, Rhythm, No Edema, No Gallop, No JVD, No Murmur, Normal Peripheral Pulses Capillary Refill: Less Than 3 Seconds Gastrointestinal: non tender, soft, no organomegaly Extremity: Normal Inspection, Normal Range of Motion, Non Tender, No Calf Tenderness, No Pedal Edema Neurologic/Psychiatric: Alert, No Motor/Sensory Deficits, Normal Mood/Affect, Disoriented Skin: Normal Color, Warm/Dry Lymphatic: No Adenopathy Results Lab Laboratory Tests 05/05/18 06:10 Assessment/Plan Assessment/Plan RUL pneumonia with acute bronchitis - azithromycin, and cefepime -Solumedrol 40 IV decrease to daily today then D/C -repeat labs -SVNs -Will continue to follow pt even after discharge to ensure CXR improves. Order placed for RN to make him an appt with me. Worsening leukocytosis - probably steroids -repeat labs today Acute renal failure -Monitor JAQUI LOJA DO May 06, 2018 08:47
[2018-05-06] MEDS ORDERED: methylPREDNISolone 40 MG/ML (Solu-MEDROL) VIAL IV SCH (09:00)
[2018-05-06 09:16] LABS: HEMOGLOBIN 9.9 G/DL (13.3-17.7); MEAN PLATELET VOLUME 8.6 FL (7.4-10.4); RED BLOOD COUNT 3.09 10^6/uL (4.35-5.85); RED CELL DISTRIBUTION WIDTH 13.8 % (10.0-14.5); WHITE BLOOD COUNT 10.4 10^3/uL (4.3-11.0)
[2018-05-06 09:35] LABS: CALCIUM 9.1 MG/DL (8.5-10.1); CREATININE SERUM 1.76 MG/DL (0.60-1.30); MAGNESIUM 1.5 MG/DL (1.8-2.4); PHOSPHORUS 3.2 MG/DL (2.3-4.7); POTASSIUM 4.5 MMOL/L (3.6-5.0)
[2018-05-06] MEDS: amLODIPine 5 MG (NORVASC) TAB PO SCH (09:48)
[2018-05-06] MEDS: ASPIRIN 81 MG CHEW (CHILDREN'S ASA) PO SCH (09:48)
[2018-05-06] MEDS: FLECAINIDE 100 MG (TAMBOCOR) TAB PO SCH (09:48)
[2018-05-06] MEDS: AZITHROMYCIN 250 MG TAB (ZITHROMAX) PO SCH (09:48)
[2018-05-06] MEDS: ALPRAZolam 0.25 MG (XANAX) TAB PO SCH (09:48)
[2018-05-06] MEDS: lisINopril 20 MG (PRINIVIL) TABLET PO SCH (09:48)
[2018-05-06] MEDS ORDERED: CEFD300C3 PO (11:15)
[2018-05-06] MEDS ORDERED: PRED10TA22 PO (11:15)
[2018-05-06] MEDS ORDERED: IPRA3AMP31 INH (11:15)
--- NOTE | 2018-05-06 11:15 | Discharge Summary-Hospitalist ---
BARBARA PATTERSON MED STUDENT 05/06/18 1115: Diagnosis/Chief Complaint Date of Admission May 02, 2018 at 01:00 Date of Discharge Discharge Date: May 06, 2018 Admission Diagnosis Right perihilar process, infectious versus malignant Discharge Diagnosis (1) Pneumonia Status: Acute (2) Atrial fibrillation Status: Chronic (3) Risk for falls Status: Chronic (4) Dementia Status: Chronic (5) Wheezing Status: Acute (6) Hypertension Status: Chronic (7) Impaired driving skills Status: Acute (8) Presbycusis of both ears Status: Chronic (9) Hyperlipidemia Status: Chronic (10) Depression Status: Chronic (11) Arthritis Status: Chronic Discharge Summary Discharge Physical Exam Allergies: Coded Allergies: iodine (Verified Allergy, Unknown, 05/01/18) Penicillins (Verified Adverse Reaction, Unknown, 05/01/18) Pt states unknown Vitals & I&Os Vital Signs Date Time Temp Pulse Resp B/P (MAP) Pulse Ox O2 Delivery O2 Flow Rate FiO2 05/06/18 08:00 97.3 106 20 150/84 (106) 92 Room Air 05/05/18 12:00 1.00 05/02/18 03:27 21 General Appearance: No Apparent Distress, WD/WN HEENT: Normal ENT Inspection Respiratory: Chest Non Tender, Lungs Clear, Normal Breath Sounds, No Accessory Muscle Use, No Respiratory Distress Cardiovascular: Regular Rate, Rhythm, No Edema, No Gallop, No JVD, No Murmur, Normal Peripheral Pulses Gastrointestinal: Normal Bowel Sounds, Non Tender, Soft Extremity: Normal Capillary Refill, Normal Inspection, Normal Range of Motion, Non Tender, No Calf Tenderness, No Pedal Edema Skin: Normal Color, Warm/Dry Neurologic/Psychiatric: Alert, No Motor/Sensory Deficits, Normal Mood/Affect Hospital Course This is an 88 yo male who presented to ED with cough, SOB, and ultimately diagnosed with pneumonia. He was treated with IV antibiotics and breathing treatments and his clinical condition greatly improved. [facility] his [facility]. We will continue course of antibiotics orally outpatient, PT, and he should follow up with PCP. Labs (last 24 hrs) Laboratory Tests 05/06/18 09:10: White Blood Count 10.4, Red Blood Count 3.09L, Hemoglobin 9.9L, Hematocrit 29L, Mean Corpuscular Volume 93, Mean Corpuscular Hemoglobin 32, Mean Corpuscular Hemoglobin Concent 35, Red Cell Distribution Width 13.8, Platelet Count 452H, Mean Platelet Volume 8.6, Sodium Level 134L, Potassium Level 4.5, Chloride Level 105, Carbon Dioxide Level 19L, Anion Gap 10, Blood Urea Nitrogen 44H, Creatinine 1.76H, Estimat Glomerular Filtration Rate 37, BUN/Creatinine Ratio 25 , Glucose Level 118H, Calcium Level 9.1, Phosphorus Level 3.2, Magnesium Level 1.5L, B-Type Natriuretic Peptide 999.8H Microbiology 05/01/18 Blood Culture - Preliminary, Resulted No growth Patient resulted labs reviewed. Pending Labs Laboratory Tests 05/06/18 09:10: White Blood Count 10.4, Red Blood Count 3.09, Hemoglobin 9.9, Hematocrit 29, Mean Corpuscular Volume 93, Mean Corpuscular Hemoglobin 32, Mean Corpuscular Hemoglobin Concent 35, Red Cell Distribution Width 13.8, Platelet Count 452, Mean Platelet Volume 8.6, Sodium Level 134, Potassium Level 4.5, Chloride Level 105, Carbon Dioxide Level 19, Anion Gap 10, Blood Urea Nitrogen 44, Creatinine 1.76, Estimat Glomerular Filtration Rate 37, BUN/Creatinine Ratio 25, Glucose Level 118, Calcium Level 9.1, Phosphorus Level 3.2, Magnesium Level 1.5, B-Type Natriuretic Peptide 999.8 Discussion & Recommendations Discharge Planning: <30 minutes discharge planning Discharge Home Medications: Active Scripts Active Reported Tylenol Extra Strength (Acetaminophen) 500 Mg Tablet 500 Mg PO BID PRN Lisinopril 20 Mg Tablet 20 Mg PO DAILY HOLD IF SBP<100 Alprazolam 0.25 Mg Tablet 0.25 Mg PO BID Pravastatin Sodium 40 Mg Tablet 40 Mg PO MOWEFR Amlodipine Besylate 5 Mg Tablet 5 Mg PO DAILY HOLD SBP<100 PULSE <60 Flecainide Acetate 50 Mg Tablet 50 Mg PO BID Citalopram HBr (Citalopram Hydrobromide) 20 Mg Tablet 20 Mg PO DAILY Aspirin 81 Mg Tab.chew 81 Mg PO DAILY Instructions to patient/family Please see electronic discharge instructions given to patient. Clinical Quality Measures DVT/VTE Risk/Contraindication: Risk Factor Score Per Nursin RFS Level Per Nursing on Admit: 4+=Very High ELPIDIO RECINOS DO 05/06/18 7496: Diagnosis/Chief Complaint Discharge Diagnosis (1) PNA (pneumonia) Status: Acute (2) Dementia Status: Chronic (3) Depression Status: Chronic (4) Hyperlipidemia Status: Chronic (5) Hypertension Status: Chronic (6) Presbycusis of both ears Status: Chronic (7) Wheezing Status: Acute (8) Impaired driving skills Status: Acute (9) Atrial fibrillation Status: Chronic (10) Risk for falls Status: Chronic Discharge Summary Discharge Physical Exam Allergies: Coded Allergies: iodine (Verified Allergy, Unknown, 05/01/18) Penicillins (Verified Adverse Reaction, Unknown, 05/01/18) Pt states unknown General Appearance: No Apparent Distress, WD/WN Respiratory: Chest Non Tender, Lungs Clear, No Accessory Muscle Use, No Respiratory Distress, Decreased Breath Sounds Neurologic/Psychiatric: Alert, No Motor/Sensory Deficits, Normal Mood/Affect Hospital Course Agree with above summary of hospital course. Discussion & Recommendations Discharge Planning: <30 minutes discharge planning Problem Qualifiers (1) Pneumonia: Pneumonia type: due to unspecified organism Laterality: right Lung location : middle lobe of lung Qualified Codes: J18.1 - Lobar pneumonia, unspecified organism (2) Atrial fibrillation: Atrial fibrillation type: paroxysmal Qualified Codes: I48.0 - Paroxysmal atrial fibrillation (3) Hypertension: Hypertension type: essential hypertension Qualified Codes: I10 - Essential ( primary) hypertension (4) Hyperlipidemia: Hyperlipidemia type: mixed hyperlipidemia Qualified Codes: E78.2 - Mixed hyperlipidemia (5) Depression: Depression Type: unspecified Qualified Codes: F32.9 - Major depressive disorder, single episode, unspecified (6) PNA (pneumonia): Pneumonia type: due to unspecified organism BARBARA PATTERSON STUDENT May 06, 2018 11:15 ELPIDIO RECINOS DO May 06, 2018 17:06
--- NOTE | 2018-05-06 11:17 | D/C HH Face to Face Order ---
D/C Face to Face Orders Instructions for Patient Patient Instructions/FollowUp: Garrison Barahona next week Physician to follow Patient: Garrison Barahona Discharge Diet for Home: No Restrictions Patient Problems: Pneumonia Wheezing Dementia Patient Data-Allergies,Ht & Wt Patient Allergies: Coded Allergies: iodine (Verified Allergy, Unknown, 05/01/18) Penicillins (Verified Adverse Reaction, Unknown, 05/01/18) Pt states unknown Height (Feet): 5 Height (Inches): 6.00 Weight (Pounds): 145 Weight (Ounces): 0.0 Home Health Need/Face to Face Date of Face to Face: May 06, 2018 Clinical Findings: Generalized weakness and fatigue, Unsteady gait I have seen Pt [id number]: Yes Discharged To: Home Diagnosis/Conditions: Pneumonia Wheezing Dementia Patient is Homebound due to: CognItive deficits, Shortness of breath/distress Homebound Status Due to the above stated illness, injury or surgical procedure (medical condition or diagnosis) and associated clinical findings, the patient is homebound because of his/her inability to leave home except with aid of a supportive device and/or person AND leaving the home requires a considerable and taxing effort or is medically contraindicated. Pt req the following assistanc: [facility] Nursing Orders Home Health Services Order: Nursing Services, Systems Integration Manager-Evaluate & Treat, Physical Therapy-Evaluate & Treat Home Health Infusion Therapy Line Start Date: May 02, 2018 Line Type: Saline Lock Site Location: Forearm Certify Stmt I certify that this patient is under my care and that I, a nurse practitioner or a physician; a dietary assistant working with me, had a face to face encounter that - meets the physician face to face encounter requirements with this patient as dated. ELPIDIO RECINOS DO May 06, 2018 11:17
[2018-05-06 12:00] VITALS: BP 145/78
[2018-05-06] MEDS: RT-BUDESONIDE NEBS 0.5 MG/2ML (PULMICORT) AMP INH SCH (12:00)
== END 2018-05-06 14:10 | disposition home health service (06) | DRG 194 ==
LOC: ER 23:08 → 4TH 05-02 01:00
PROVIDERS: ADMIT Family Medicine; ATTEND Family Medicine
DX: J18.9 Pneumonia, unspecified organism (principal); J20.9 Acute bronchitis, unspecified; N17.9 Acute kidney failure, unspecified; E87.2 Acidosis; F03.90 Unspecified dementia, unspecified severity, without behavioral disturbance, psychotic disturbance, mood disturbance, and anxiety; I10 Essential (primary) hypertension; E78.00 Pure hypercholesterolemia, unspecified; F41.9 Anxiety disorder, unspecified; F32.9 Major depressive disorder, single episode, unspecified; M19.91 Primary osteoarthritis, unspecified site; H91.90 Unspecified hearing loss, unspecified ear; R09.02 Hypoxemia; E78.5 Hyperlipidemia, unspecified; H91.13 Presbycusis, bilateral; I48.2 Chronic atrial fibrillation; Z95.0 Presence of cardiac pacemaker
CPT/HCPCS: 36415; 71045; 71046; 71250; 80048; 80053; 81000; 83605; 83735; 83880; 84100; 85007; 85025; 85027; 86141; 87040; 94640; 94760; 94761; 96361; 96365

== ENCOUNTER → 2018-06-02 | Outpatient (CLI) | payer MEDICARE ==
[~2018-06-02] MED LIST: ACET-2267 PO; ALPR0.254 PO; AMLO5TAB7 PO; ASPI-999 PO; CEFD300C3 PO; CITA20TA9 PO; FLEC50TA PO; IPRA3AMP31 INH; LISI-552 PO; PRAV40TA2 PO; PRED10TA22 PO
--- NOTE | 2018-06-02 11:48 | Diagnostic Imaging Report ---
INDICATION: Followup pneumonia. COMPARISON: 05/05/2018. FINDINGS: Frontal and lateral radiographic views of the chest were obtained and show persistent moderate cardiomegaly. Pulmonary vasculature is within normal limits. Left-sided dual-lead pacemaker is noted. Since previous exam, there has been interval clearing of right-sided infiltrates. There is no focal consolidation, large effusion, nor pneumothorax on today's exam. Bony structures show no gross acute abnormalities. IMPRESSION: 1. Interval clearing of the lungs. 2. Persistent cardiomegaly, but no evidence of overt failure. Dictated by: Dictated on workstation # [id number]
== END ==
LOC: RAD 11:05
PROVIDERS: ATTEND Nurse Practitioner Family
DX: J18.9 Pneumonia, unspecified organism (principal); I51.7 Cardiomegaly
CPT/HCPCS: 71046